=== PATIENT | female | born 1985 | race Caucasian/White ===

== ENCOUNTER → 2016-07-09 | Outpatient (CLI) | payer OTHER ==
[2016-07-09 12:48] LABS: CH 30.1; CHCM 34.7; HCT 36.4 % (34.0-46.0); HDW 2.66; HGB 12.4 gm/dL (11.4-16.0); MCH 29.7 pg (25.0-35.0); MCHC 34.1 g/dL (31.0-37.0); MCV 87.1 fL (80.0-100.0); Mean Platelet Volume 7.3; RBC 4.19 m/uL (3.80-5.40); RDW 13.1 % (11.5-15.5); WBC 10.9 k/uL (3.8-10.6)
== END | disposition home or self-care (01) ==
LOC: LABWHC1 11:28
PROVIDERS: ATTEND Obstetrics & Gynecology
DX: Z34.82 Encounter for supervision of other normal pregnancy, second trimester (principal); Z3A.00 Weeks of gestation of pregnancy not specified
CPT/HCPCS: 36415; 82950; 85027

== ENCOUNTER 2016-10-18 06:30 | Inpatient (IN) | payer OTHER ==
[2016-10-18] MEDS ORDERED: TERBUTALINE 1 MG/ML VIAL SQ PRN (07:07)
[2016-10-18] MEDS ORDERED: OXYTOCIN 10 UNIT/ML 1 ML VIAL IM PRN (07:07)
[2016-10-18] MEDS ORDERED: CARBOPROST TROMETHAMINE 250 MCG/ML 1 ML AMP IM PRN (07:07)
[2016-10-18] MEDS ORDERED: LIDOCAINE 1% (PF) 10 MG/ML (30 ML SDV) SQ PRN (07:07)
[2016-10-18] MEDS ORDERED: METHYLERGONOVINE 0.2 MG/ML 1 ML AMP IM PRN (07:07)
[2016-10-18] MEDS ORDERED: OXYTOCIN 20 UNITS/1000 ML NS 1,000 ML IV SCH ×2 (07:15→21:30)
[2016-10-18 07:36] VITALS: BMI 34.3
[2016-10-18 07:47] LABS: Basophils % (A) 0 %; CH 30.5; CHCM 36.5; Eosinophils # (A) 0.1 k/uL (0-0.7); Eosinophils % (A) 1 %; HCT 35.2 % (34.0-46.0); HDW 2.95; HGB 12.5 gm/dL (11.4-16.0); Luc # (Auto) 0.45; Luc % (Auto) 4; Lymphocytes # (A) 2.5 k/uL (1.0-4.8); Lymphocytes % (A) 22 %; MCH 29.9 pg (25.0-35.0); MCHC 35.5 g/dL (31.0-37.0); Mean Platelet Volume 7.6; Monocytes # (A) 0.6 k/uL (0-1.0); Monocytes % (A) 5 %; Neutrophils # (A) 7.8 k/uL (1.3-7.7); Neutrophils % (A) 68 %; RBC 4.19 m/uL (3.80-5.40); RDW 13.4 % (11.5-15.5); WBC 11.4 k/uL (3.8-10.6); WBC (Perox) 12.04
[2016-10-18] MEDS ORDERED: fentaNYL (PF) 50 MCG/ML 5 ML AMP ONE (11:40)
[2016-10-18] MEDS ORDERED: BUPIVACAINE (PF) 0.25% 30 ML VIAL ONE (11:40)
[2016-10-18] MEDS ORDERED: SODIUM CHLORIDE 0.9% 100 ML BAG ONE (11:40)
[2016-10-18] MEDS ORDERED: BUPIVACAINE (PF) 0.25% 25 ML, fentaNYL (PF) 200 MCG in SODIUM CHLORIDE 0.9% 71 ML EPIDURAL ONE (13:06)
[2016-10-18] MEDS: LACTATED RINGERS 1,000 ML IV SCH ×2 (13:10→22:31)
[2016-10-18 13:18] LABS: ALT 40 U/L (9-52); AST 20 U/L (14-36); Blood Urea Nitrogen 9 mg/dL (7-17); LDH 403 U/L (313-618); Non-African American GFR(MDRD) >60 (>60 ml/min/1.73 sqM); Uric Acid 3.3 mg/dL (3.7-7.4)
[2016-10-18] MEDS ORDERED: CITRIC ACID-SODIUM CITRATE 15 ML CUP PO ONE (19:51)
[2016-10-18] MEDS ORDERED: MORPHINE SULFATE (PF) 0.3 MG/0.3 ML SYR ONE (19:53)
[2016-10-18] MEDS ORDERED: OXYTOCIN 10 UNIT/ML 1 ML VIAL ONE (19:53)
[2016-10-18] MEDS ORDERED: PHENYLEPHRINE-0.9% NACL SYG 1 MG/10 ML SYRINGE ONE (19:53)
[2016-10-18] MEDS ORDERED: KETOROLAC 30 MG/ML 1 ML VIAL ONE (19:53)
[2016-10-18] MEDS ORDERED: ONDANSETRON 4 MG/2 ML VIAL ONE (19:53)
[2016-10-18] MEDS ORDERED: NALBUPHINE 10 MG/ML AMPUL ONE (19:53)
--- NOTE | 2016-10-18 20:43 | P.HPOB ---
History of Present Illness H&P Date: 10/18/16 Chief Complaint: IUP term: induction of labor Patient is a 31-year-old at 39 weeks gestation arise for induction of labor. She is been followed closely throughout her and other than persistent marijuana use has had no other significant complications. Her course generally was unremarkable with an EDC of 620 of 2017 confirmed by ultrasound. Pertinent labs did include O+ blood type rubella immune hepatitis B surface antigen and group B strep and RPR were all negative. It should be noted that she is a smoker and she does smoke marijuana. Artificial rupture membranes was performed this morning with her dilated to 1/2 cm 80% effaced -2 station. Clear fluid is noted. An initial presentation blood pressure was normal as close to remainder of her physical exam. Heart regular, lungs clear, extremities without pain. Abdomen is soft and gravid uterus is noted. She was ivelisse Y evaluated every 3-6 minutes and heart tones were in the 140s and reactive. Assessment intrauterine at term: Plan induction of labor, epidural for pain management, expect spontaneous vaginal delivery with Pitocin augmentation of labor. Past Medical History Past Medical History: No Reported History History of Any Multi-Drug Resistant Organisms: MRSA Date of last positivie culture/infection: 2003 MDRO Source:: right arm Additional Past Surgical History / Comment(s): Oral surgery wisdom teeth, 1996 Past Anesthesia/Blood Transfusion Reactions: No Reported Reaction Smoking Status: Current every day smoker Past Alcohol Use History: None Reported Past Drug Use History: Marijuana Additional Drug Use History / Comment(s): smokes 2 joints/ day currently - Past Family History Mother Family Medical History: Hypertension Medications and Allergies Home Medications Medication Instructions Recorded Confirmed Type No Known Home Medications [No 10/18/16 10/18/16 History Known Home Medications] Allergies Allergy/AdvReac Type Severity Reaction Status Date / Time No Known Allergies Allergy Verified 10/18/16 07:06 Exam Osteopathic Statement: *. No significant issues noted on an osteopathic structural exam other than those noted in the History and Physical/Consult. - Vital Signs Vital signs: Vital Signs Temp Pulse Resp BP 10/18/16 07:13 96.9 F L 97 18 154/76 Intake and Output 10/18/16 10/18/16 10/18/16 06:59 14:59 22:59 Other: Weight 96.615 kg Patient Weight 10/19/16 06:59 Weight 96.615 kg Results Result Diagrams: 10/18/16 07:20 10/18/16 12:56 Abnormal Lab Results - Last 24 Hours (Table) 10/18/16 10/18/16 Range/Units 07:20 12:56 WBC 11.4 H (3.8-10.6) k/uL Neutrophils # 7.8 H (1.3-7.7) k/uL Creatinine 0.50 L (0.52-1.04) mg/dL Uric Acid 3.3 L (3.7-7.4) mg/dL
--- NOTE | 2016-10-18 20:49 | P.OP ---
Date of Procedure: 10/18/16 Preoperative Diagnosis: Intrauterine at term: Failure to progress: Elevated blood pressures during labor likely due to pain Postoperative Diagnosis: Same Procedure(s) Performed: Primary low transverse section from Pfannenstiel Implants: Anesthesia: spinal Surgeon: Sunny Weeks Manager Sql #1: Delisa Ragsdale Estimated Blood Loss (ml): 500 IV fluids (ml): 700 Urine output (ml): 100 Pathology: other (Placenta) Condition: stable Disposition: floor Indications for Procedure: Operative Findings: Throughout the day patient had intermittent elevations in her blood pressure. Each time she had an elevation of blood pressure once pain was managed her blood pressure medially came down. At approximately between 1 and 1:30 the nurses did discuss her blood pressure elevation with me but that was the first time I was notified of an elevated blood pressure. She did have several significant elevations 180/90 and 170/90. We did order preeclamptic labs at this point however, once epidural was placed her blood pressure immediately returned to normal value and she voiced no complaints. Deep tendon reflexes were 2+ no swelling and no other signs or symptoms of preeclampsia. I was again notified at approximately 7 to 7:30 again that there is been some further elevations in her blood pressure but it was also noted that each time her pain was managed her blood pressure immediately went down. It is something we will have to follow closely over the next day or 2. She received no medication for her blood pressure elevations due to my not be notified of her blood pressures when they were elevated. Following delivery scores were 8 and 9 at one and 5 minutes respectively and the weight of this male was 8 lbs. 3 oz. Description of Procedure: Patient was taken to the operating suite where a spinal anesthetic was found be adequate. She was prepped and draped in normal sterile fashion placed in the dorsal supine position with leftward tilt. Initially a Pfannenstiel skin incision was made and this incision was then carried through to the underlying layer of the fascia was second knife. She was then nicked midline and this opening was extended laterally with Stanton scissors. Superior and inferior aspect of this incision were then grasped tented up and bluntly and sharply dissected off the rectus muscles. Rectus muscles were then divided midline and blunt dissection through the peritoneum was made. This opening was then extended superiorly and inferiorly with good visualization of both bowel bladder. Bladder blade was then placed the vesicouterine peritoneum identified and grasped with pickups. This tissue was then entered sharply with Metzenbaum scissors and her bladder flap was digitally created. Knife was then used to incise uterus and this opening was then extended bluntly following full opening of the incision with hemostat. Head was then brought up into the incision and atraumatically delivered. A was delivered from right occiput transverse position and significant It is noted. Once baby was delivered the head in the mouth nares were bulb suctioned anterior posterior shoulders were easily delivered with gentle downward upper traction. Umbilical cord was then clamped and cut in usual fashion an a was handed over to nursery personnel in stable condition. Uterus was then exteriorized following removal of the placenta it was cleared of clots and debris and closed in 2 layers with 0 Vicryl suture. Once excellent hemostasis was obtained 3-0 Vicryl was used to reapproximate the bladder flap and blood and debris was suctioned from the posterior cul-de-sac. Uterus was then reinserted into the abdomen and the peritoneal layer was closed 0 Vicryl suture. Fascial layer was then closed with 0 Vicryl suture one layer of 3-0 Vicryl was placed in deep subcuticular tissues to reapproximate the skin and close the space and the skin was then closed with 3-0 Vicryl on a Davi needle. Patient tolerated surgery very well sponge, lap, needle counts were all correct 2 and patient was taken to the recovery room in stable and satisfactory condition.
[2016-10-18] MEDS ORDERED: METOCLOPRAMIDE 5 MG/ML 2 ML VIAL IVP PRN (21:21)
[2016-10-18] MEDS ORDERED: Acetaminophen-Codeine 300-30mg TAB PO PRN ×2 (21:21)
[2016-10-18] MEDS ORDERED: IBUPROFEN 600 MG TAB PO PRN (21:21)
[2016-10-18] MEDS ORDERED: ZOLPIDEM 5 MG TAB PO PRN (21:21)
[2016-10-18] MEDS ORDERED: ONDANSETRON 4 MG/2 ML VIAL IVP PRN (21:21)
[2016-10-18] MEDS ORDERED: diphenhydrAMINE 25 MG CAP PO PRN (21:21)
[2016-10-18] MEDS ORDERED: SIMETHICONE 80 MG CHEWABLE PO PRN (21:21)
[2016-10-18] MEDS ORDERED: ACETAMINOPHEN TAB 325 MG TAB PO PRN (21:21)
[2016-10-18] MEDS ORDERED: diphenhydrAMINE 50 MG CAP PO PRN (21:21)
[2016-10-18] MEDS ORDERED: diphenhydrAMINE 50 MG/ML 1 ML VIAL IVP PRN ×2 (21:21)
[2016-10-18] MEDS ORDERED: LANOLIN CREAM 5 GM TUBE TOPICAL PRN (21:21)
[2016-10-18] MEDS ORDERED: NALOXONE 0.4 MG/ML 1 ML VIAL IV PRN (21:21)
[2016-10-19] MEDS: KETOROLAC 30 MG/ML 1 ML VIAL IVP PRN ×3 (05:35→20:27)
[2016-10-19] MEDS: LACTATED RINGERS 1,000 ML IV SCH ×2 (05:36→23:31)
[2016-10-19 06:41] LABS: Basophils % (A) 0 %; CH 30.5; CHCM 35.5; Eosinophils # (A) 0.1 k/uL (0-0.7); Eosinophils % (A) 1 %; HCT 32.6 % (34.0-46.0); HDW 2.89; HGB 11.2 gm/dL (11.4-16.0); Luc # (Auto) 0.36; Luc % (Auto) 2; Lymphocytes # (A) 2.2 k/uL (1.0-4.8); Lymphocytes % (A) 12 %; MCH 29.6 pg (25.0-35.0); MCHC 34.3 g/dL (31.0-37.0); MCV 86.3 fL (80.0-100.0); Mean Platelet Volume 7.4; Monocytes # (A) 0.8 k/uL (0-1.0); Monocytes % (A) 4 %; Neutrophils % (A) 80 %; RBC 3.78 m/uL (3.80-5.40); RDW 13.4 % (11.5-15.5); WBC 17.4 k/uL (3.8-10.6); WBC (Perox) 17.86
[2016-10-19] MEDS: SENNOSIDES-DOCUSATE SODIUM 1 EACH TAB PO SCH ×2 (07:59→20:27)
--- NOTE | 2016-10-19 08:02 | P.PNOBGPC ---
Subjective - Subjective Principal diagnosis: Postoperative 1 Interval history: Patient is doing very well postop day 1. Review of her blood pressures through the night reveals them to be all within normal limits. She is very comfortable now following the surgery her pain levels well controlled and she voices no complaints. She is tolerating a clear liquid diet and she is able to ambulate. Patient reports: Reports appetite normal, Reports voiding normally, Reports pain well controlled, Reports ambulating normally [place]: doing well Objective - Vital Signs Latest vital signs: Vital Signs Temp Pulse Resp BP Pulse Ox 10/19/16 03:00 98.5 F 83 16 112/66 98 10/18/16 22:44 97.6 F 81 16 119/66 95 10/18/16 22:14 97.5 F L 68 16 111/54 96 10/18/16 21:44 85 16 119/58 98 10/18/16 21:29 97.2 F L 79 16 118/64 97 10/18/16 21:14 81 14 123/71 95 10/18/16 20:59 97.6 F 93 14 112/56 94 L 10/18/16 20:44 97.5 F L 99 16 92/43 97 Intake and Output 10/18/16 10/19/16 10/19/16 22:59 06:59 14:59 Intake Total 1700.00 Output Total 600 750 Balance 1100.00 -750 Intake: IV 700 Intake, IV Titration 1000.00 Amount Oxytocin 20 Units/1000 ml 1000.00 Ns 1,000 ml @ 1 MILLIUNIT/MIN 3 mls/hr IV .Q24H [facility] Rx#:[id number] Output: Urine 100 750 Uretheral (Castellanos) 350 Estimated Blood Loss 500 Other: Voiding Method Indwelling Catheter - Exam Lungs: bilateral: normal Chest: Normal S1, Normal S2 Extremities: Present: normal Abdomen: Present: normal appearance, soft. Absent: distention, tenderness Incision: Present: normal, dry, intact Uterus: Present: normal, firm - Labs Labs: Abnormal Lab Results - Last 24 Hours (Table) 10/18/16 10/18/16 10/19/16 Range/Units 07:20 12:56 06:30 WBC 11.4 H 17.4 H (3.8-10.6) k/uL RBC 3.78 L (3.80-5.40) m/uL Hgb 11.2 L (11.4-16.0) gm/dL Hct 32.6 L (34.0-46.0) % Neutrophils # 7.8 H 14.0 H (1.3-7.7) k/uL Creatinine 0.50 L (0.52-1.04) mg/dL Uric Acid 3.3 L (3.7-7.4) mg/dL
--- NOTE | 2016-10-19 08:06 | P.PN ---
Progress Note - Text Following delivery I reviewed all the blood pressures throughout the day and there were multiple blood pressures that I was not notified of that were significantly above the normal value. It is unclear why I was not notified of most of these blood pressure elevations. By and large once her pain seemed to be better they did return to normal value and throughout the day she had multiple normal values including 120s over 70s and 60s. However there were blood pressures were as high as 200/100 that were not addressed. I did speak with the nurse in the early afternoon and at that time she notified me of 3 elevated blood pressures I did question why she didn't notify me earlier but she said that the blood pressures had come down and that at that time she felt it was more due to pain and stress then anything else. Once she had her epidural sure relates that patient's blood pressures DOWN to normal values at that point. Once I was notified of the blood pressures I did order preeclamptic labs which all returned normal. I was not again notified any elevated blood pressures until shortly before we moved forward with her section, while it seems likely that these blood pressures were related to pain and stress more than anything else without having notification of how elevated blood pressures were really had no opportunity to address them and certainly would have started her on labetalol for blood pressures that were greater than 160 and/or greater than 110 diastolic. That said the patient denied all signs and symptoms of preeclampsia and it appears that the blood pressure issue was stress related, pain related, but I cannot fully rule out gestational hypertension as part of the diagnosis. Again it is almost certain that during the process of her labor had I been aware for blood pressure elevations I would have given her labetalol and we would have been more aggressive with her blood pressure elevations had a high been notified of same.
--- NOTE | 2016-10-19 10:58 | P.PN ---
Progress Note - Text 0645 Anesthesia POD 1. Patient is status post section under spinal anesthesia with intra-thecal preservative free morphine [300 g]. Minimal pruritus, good post-op analgesia, and no headache or other complications.
[2016-10-20] MEDS: SENNOSIDES-DOCUSATE SODIUM 1 EACH TAB PO SCH (08:33)
--- NOTE | 2016-10-20 09:17 | P.DS ---
Providers Date of admission: 10/18/16 06:45 Expected date of discharge: 10/20/16 Attending physician: Sunny Weeks Primary care physician: Stated None Hospital Course: Patient is doing very well post op day 2. She is ambulating, voiding, and she is tolerating her diet. She voices no complaints and requests discharged home today. Her vital signs are stable she is afebrile. Heart regular, lungs clear , extremities without pain. Abdomen is soft uterus is firm incision is clean dry and intact. Assessment postop day 2. Plan discharged home follow up with me in 1 week. Prescription for Tylenol 3 and Motrin has been provided as has a prescription for breast pump. All other questions are answered for her prior to her discharge and she is stable for discharge at this time. Patient Condition at Discharge: Good Plan - Discharge Summary New Discharge Prescriptions: New Acetaminophen-Codeine 300-30mg [Tylenol #3] 1 tab PO Q4H PRN #30 tablet PRN Reason: Pain Ibuprofen [Motrin] 600 mg PO Q6HR PRN #30 tab PRN Reason: Pain Discharge Medication List Acetaminophen-Codeine 300-30mg [Tylenol #3] 1 tab PO Q4H PRN #30 tablet [Rx] Ibuprofen [Motrin] 600 mg PO Q6HR PRN #30 tab 10/20/16 [Rx] Follow up Appointment(s)/Referral(s): Sunny Weeks DO [Doctor of Osteopathic Medicine] - 1 Week Activity/Diet/Wound Care/Special Instructions: No heavy lifting, limit stairs and driving, and pelvic rest. If any high temperatures, heavy bleeding, or severe pain call my office Discharge Disposition: HOME SELF-CARE
[2016-10-20 09:27] VITALS: BP 135/77; PULSE 82; RESP 20; TEMP 97.4
== END 2016-10-20 12:20 | disposition home or self-care (01) | DRG 765 ==
LOC: 4FBP 06:45
PROVIDERS: ADMIT Obstetrics & Gynecology; ATTEND Obstetrics & Gynecology
PROC: 10907ZC Drainage of Amniotic Fluid, Therapeutic from Products of Conception, Via Natural or Artificial Opening (ICD-10-PCS; 2016-10-18)
PROC: 3E033VJ Introduction of Other Hormone into Peripheral Vein, Percutaneous Approach (ICD-10-PCS; 2016-10-18)
PROC: 3E0S3NZ Introduction of Analgesics, Hypnotics, Sedatives into Epidural Space, Percutaneous Approach (ICD-10-PCS; 2016-10-18)
PROC: 10D00Z1 Extraction of Products of Conception, Low, Open Approach (ICD-10-PCS; principal; 2016-10-18 19:43)
DX: O62.0 Primary inadequate contractions (principal); O99.324 Drug use complicating childbirth; F12.90 Cannabis use, unspecified, uncomplicated; O13.4 Gestational [pregnancy-induced] hypertension without significant proteinuria, complicating childbirth; F17.200 Nicotine dependence, unspecified, uncomplicated; O99.334 Smoking (tobacco) complicating childbirth; Z86.14 Personal history of Methicillin resistant Staphylococcus aureus infection; Z86.19 Personal history of other infectious and parasitic diseases; Z82.49 Family history of ischemic heart disease and other diseases of the circulatory system; Z3A.39 39 weeks gestation of pregnancy; Z37.0 Single live birth
CPT/HCPCS: 82565; 83615; 84450; 84460; 84520; 84550; 85025; 88307

== ENCOUNTER 2017-04-18 16:58 | Emergency (ER) | payer OTHER ==
[2017-04-18 17:15] VITALS: BP 139/70; PULSE 87; RESP 18; TEMP 99
[2017-04-18 17:55] LABS: Appearance,Urine Clear (Clear); Bilirubin,Urine Negative (Negative); Glucose,Urine (UA) Negative (Negative); Ketones,Urine Negative (Negative); Leukocyte Esterase,Urine Negative (Negative); Nitrite,Urine Negative (Negative); Protein,Urine Trace (Negative); Specific Gravity,Urine 1.017 (1.001-1.035); UA Billing (MACRO vs. MICRO) CHEM; Urobilinogen,Urine <2.0 mg/dL (<2.0)
[2017-04-18 18:00] LABS: Basophils # (A) 0.1 k/uL (0-0.2); Basophils % (A) 1 %; CH 29.1; Eosinophils # (A) 0.1 k/uL (0-0.7); Eosinophils % (A) 1 %; HCT 45.4 % (34.0-46.0); HDW 2.32; Luc # (Auto) 0.13; Luc % (Auto) 1; Lymphocytes # (A) 2.2 k/uL (1.0-4.8); Lymphocytes % (A) 16 %; MCH 28.5 pg (25.0-35.0); MCHC 33.1 g/dL (31.0-37.0); MCV 86.1 fL (80.0-100.0); Mean Platelet Volume 7.2; Monocytes # (A) 0.5 k/uL (0-1.0); Monocytes % (A) 4 %; Neutrophils # (A) 10.8 k/uL (1.3-7.7); Neutrophils % (A) 78 %; RBC 5.27 m/uL (3.80-5.40); RDW 14.1 % (11.5-15.5); WBC 13.8 k/uL (3.8-10.6); WBC (Perox) 14.04
--- NOTE | 2017-04-18 18:00 | ED ---
General Adult HPI - General Chief complaint: Abdominal Pain Stated complaint: Wants test Time Seen by Provider: 04/18/17 17:16 Source: patient, RN notes reviewed Mode of arrival: ambulatory Limitations: no limitations - History of Present Illness Initial comments: This is a 32-year-old female who presents to the emergency department with request for evaluation of possible . Patient states that for the past week she has been having pain at her previous scar. She describes the pain as tugging and pulling lasting for about 30 seconds at a time. She states that on Tuesday she had a positive test. Today she experienced abdominal pain about 4 times. She states that she had a in September, after being in labor for 11 hours with her son. She states there were no complications. She is unsure of her last menstrual period, stating that it was either November or December. Patient denies any bleeding or discharge. This concerned because she has been donating plasma. She admits that she has been having some morning sickness. Denies fever, chills, chest pain , shortness of breath, constipation or diarrhea, dysuria or hematuria, numbness or tingling, headache or vision changes. - Related Data Home Medications Medication Instructions Recorded Confirmed No Known Home Medications [No 04/18/17 04/18/17 Known Home Medications] Allergies Allergy/AdvReac Type Severity Reaction Status Date / Time No Known Allergies Allergy Verified 04/18/17 18:29 Review of Systems ROS Statement: Those systems with pertinent positive or pertinent negative responses have been documented in the HPI. ROS Other: All systems not noted in ROS Statement are negative. Past Medical History Past Medical History: No Reported History History of Any Multi-Drug Resistant Organisms: MRSA Date of last positivie culture/infection: 2003 MDRO Source:: right arm Past Surgical History: Section Additional Past Surgical History / Comment(s): Oral surgery wisdom teeth, 1996 Past Anesthesia/Blood Transfusion Reactions: No Reported Reaction Past Psychological History: No Psychological Hx Reported Smoking Status: Current every day smoker Past Alcohol Use History: None Reported Past Drug Use History: Marijuana - Past Family History Mother Family Medical History: Hypertension General Exam - General Exam Comments Initial Comments: General: Awake and alert, well-developed; in no apparent distress. HEENT: Head atraumatic, normocephalic. Pupils are equal, round and reactive to light. Extraocular movements intact. Oropharynx moist without erythema or exudate. Neck: Supple. Normal ROM. Cardiovascular: Regular rate and rhythm. No murmurs, rubs or gallops. Chest symmetrical. Respiratory: Lungs clear to auscultation bilaterally. No wheezes, rales or rhonchi. Normal respiratory effort with no use of accessory muscles. Abdomen: Soft, non-distended. Generalized tenderness over her lower abdomen. C -section scar is well-healed. No rigidity, rebound or guarding. Normal bowel sounds in all 4 quadrants. Musculoskeletal: Normal ROM, no tenderness bilateral upper and lower extremities. Ambulating normally. Skin: [place], warm and dry without rashes or lesions. Neurological: Alert and oriented x3. CN II-XII grossly intact. Speech is fluent and answers are appropriate. No focal neuro deficits. Psychiatric: Normal mood and affect. No overt signs of depression or anxiety noted. Limitations: no limitations Course Vital Signs 04/18/17 17:12 Temperature 99.0 F Pulse Rate 87 Respiratory 18 Rate Blood Pressure 139/70 O2 Sat by Pulse 100 Oximetry Medical Decision Making - Medical Decision Making This is a 32-year-old female who presented to the emergency department for evaluation of abdominal pain and possible . Urine hCG was positive. Serum quant is pending ultrasound revealed a 9 week IUP and a subchorionic bleed. When I returned to the room to discuss findings with patient she had eloped. Was unable to discuss anything further with patient. - Lab Data Result diagrams: 04/18/17 17:39 04/18/17 17:39 Lab Results 04/18/17 04/18/17 04/18/17 Range/Units 17:39 17:39 17:39 WBC 13.8 H (3.8-10.6) k/uL RBC 5.27 (3.80-5.40) m/uL Hgb 15.0 (11.4-16.0) gm/dL Hct 45.4 (34.0-46.0) % MCV 86.1 (80.0-100.0) fL MCH 28.5 (25.0-35.0) pg MCHC 33.1 (31.0-37.0) g/dL RDW 14.1 (11.5-15.5) % Plt Count 292 (150-450) k/uL Neutrophils % 78 % Lymphocytes % 16 % Monocytes % 4 % Eosinophils % 1 % Basophils % 1 % Neutrophils # 10.8 H (1.3-7.7) k/uL Lymphocytes # 2.2 (1.0-4.8) k/uL Monocytes # 0.5 (0-1.0) k/uL Eosinophils # 0.1 (0-0.7) k/uL Basophils # 0.1 (0-0.2) k/uL Sodium 135 L (137-145) mmol/L Potassium 3.7 (3.5-5.1) mmol/L Chloride 104 (98-107) mmol/L Carbon Dioxide 21 L (22-30) mmol/L Anion Gap 10 mmol/L BUN 8 (7-17) mg/dL Creatinine 0.48 L (0.52-1.04) mg/dL Est GFR (MDRD) Af Amer >60 (>60 ml/min/1.73 sqM) Est GFR (MDRD) Non-Af >60 (>60 ml/min/1.73 sqM) Glucose 72 L (74-99) mg/dL Calcium 10.0 (8.4-10.2) mg/dL Total Bilirubin 0.5 (0.2-1.3) mg/dL AST 19 (14-36) U/L ALT 40 (9-52) U/L Alkaline Phosphatase 70 (38-126) U/L Total Protein 7.5 (6.3-8.2) g/dL Albumin 4.5 (3.5-5.0) g/dL Amylase 72 (30-110) U/L Lipase 60 (23-300) U/L Urine Color Urine Appearance (Clear) Urine pH (5.0-8.0) Ur Specific [place] (1.001-1.035) Urine Protein (Negative) Urine Glucose (UA) (Negative) Urine Ketones (Negative) Urine Blood (Negative) Urine Nitrite (Negative) Urine Bilirubin (Negative) Urine Urobilinogen (<2.0) mg/dL Ur Leukocyte Esterase (Negative) Urine HCG, Qual Detected (Not Detectd) 04/18/17 Range/Units 17:39 WBC (3.8-10.6) k/uL RBC (3.80-5.40) m/uL Hgb (11.4-16.0) gm/dL Hct (34.0-46.0) % MCV (80.0-100.0) fL MCH (25.0-35.0) pg MCHC (31.0-37.0) g/dL RDW (11.5-15.5) % Plt Count (150-450) k/uL Neutrophils % % Lymphocytes % % Monocytes % % Eosinophils % % Basophils % % Neutrophils # (1.3-7.7) k/uL Lymphocytes # (1.0-4.8) k/uL Monocytes # (0-1.0) k/uL Eosinophils # (0-0.7) k/uL Basophils # (0-0.2) k/uL Sodium (137-145) mmol/L Potassium (3.5-5.1) mmol/L Chloride (98-107) mmol/L Carbon Dioxide (22-30) mmol/L Anion Gap mmol/L BUN (7-17) mg/dL Creatinine (0.52-1.04) mg/dL Est GFR (MDRD) Af Amer (>60 ml/min/1.73 sqM) Est GFR (MDRD) Non-Af (>60 ml/min/1.73 sqM) Glucose (74-99) mg/dL Calcium (8.4-10.2) mg/dL Total Bilirubin (0.2-1.3) mg/dL AST (14-36) U/L ALT (9-52) U/L Alkaline Phosphatase (38-126) U/L Total Protein (6.3-8.2) g/dL Albumin (3.5-5.0) g/dL Amylase (30-110) U/L Lipase (23-300) U/L Urine Color Yellow Urine Appearance Clear (Clear) Urine pH 6.0 (5.0-8.0) Ur Specific [place] 1.017 (1.001-1.035) Urine Protein Trace H (Negative) Urine Glucose (UA) Negative (Negative) Urine Ketones Negative (Negative) Urine Blood Negative (Negative) Urine Nitrite Negative (Negative) Urine Bilirubin Negative (Negative) Urine Urobilinogen <2.0 (<2.0) mg/dL Ur Leukocyte Esterase Negative (Negative) Urine HCG, Qual (Not Detectd) - Radiology Data Radiology results: report reviewed Transabdominal obstetric ultrasound impression: 1. A single viable IUP 9 weeks/ 0 days with JEN of 11/21/17. 2. Subchorionic bleed superior to gestational sac. 3. Corpus luteum left ovary. Disposition Clinical Impression: Subchorionic bleed Disposition: Left W/O Being Seen by Phys Referrals: José Cole MD [Primary Care Provider] - 1-2 days Time of Disposition: 19:18
[2017-04-18 18:30] LABS: ALT 40 U/L (9-52); AST 19 U/L (14-36); Alkaline Phosphatase 70 U/L (38-126); Amylase 72 U/L (30-110); Anion Gap 10 mmol/L; Blood Urea Nitrogen 8 mg/dL (7-17); Carbon Dioxide 21 mmol/L (22-30); Chloride 104 mmol/L (98-107); Glucose 72 mg/dL (74-99); Non-African American GFR(MDRD) >60 (>60 ml/min/1.73 sqM); Potassium 3.7 mmol/L (3.5-5.1); Sodium 135 mmol/L (137-145); Total Bilirubin 0.5 mg/dL (0.2-1.3); Total Protein 7.5 g/dL (6.3-8.2)
--- NOTE | 2017-04-18 18:38 | US ---
EXAMINATION TYPE: US OB <= 14 wk fetus DATE OF EXAM: 04/18/2017 COMPARISON: NONE CLINICAL HISTORY: pos preg + abdominal pain. Pelvic pain, history of EXAM PERFORMED: Transabdominal (TA) EXAM MEASUREMENTS: GESTATIONAL AGE / DATING Physician Established: Not yet established Dates by LMP: LMP unknown Dates by First Scan: No previous this is first scan Dates by Current Scan for: (9 weeks/0 days) EDC: 11/21/17 MATERNAL ANATOMY Uterus: 11.0 x 6.7 x 8.1cm Right Ovary: 3.7 x 1.8 x 2.6cm Left Ovary: 4.6 x 2.6 x 2.4cm Post CDS / Adnexa: wnl Presence of free fluid: no Presence of corpus luteal cyst: hypoechoic area left ovary = 2.0 x 1.8 x 1.9cm Presence of subchorionic bleed: yes, superior to gestational sac =2.5cm GESTATION / SURVEY CRL: 2.3cm (9 weeks/0 days) Yolk Sac (normal less than 6mm): 0.5cm Heart Rate: 170 bpm Rhythm: Normal IUP: Viable IUP Date of LMP: November or December Beta HcG (if available): Not available at this time IMPRESSION: 1. SINGLE VIABLE IUP 9WKS/0DAYS WITH JEN OF 11/21/17. 2. SUBCHORIONIC BLEED SUPERIOR TO GESTATIONAL SAC. 3. CORPUS LUTEUM LEFT OVARY.
== END 2017-04-18 19:23 | disposition left against medical advice (07) ==
LOC: EC 16:58
DX: O20.8 Other hemorrhage in early pregnancy (principal); O99.89 Other specified diseases and conditions complicating pregnancy, childbirth and the puerperium; R10.9 Unspecified abdominal pain; O99.331 Smoking (tobacco) complicating pregnancy, first trimester; F17.200 Nicotine dependence, unspecified, uncomplicated; Z3A.09 9 weeks gestation of pregnancy; Z86.14 Personal history of Methicillin resistant Staphylococcus aureus infection
CPT/HCPCS: 36415; 76801; 80053; 81003; 81025; 82150; 83690; 84702; 85025; 99284

== ENCOUNTER → 2017-09-02 | Outpatient (CLI) | payer OTHER ==
[2017-09-02 13:13] LABS: Appearance,Urine Clear (Clear); Bilirubin,Urine Negative (Negative); Blood,Urine Negative (Negative); Color,Urine Light Yellow; Glucose,Urine (UA) Negative (Negative); Ketones,Urine Trace (Negative); Leukocyte Esterase,Urine Negative (Negative); Nitrite,Urine Negative (Negative); PH, Urine 6.5 (5.0-8.0); Protein,Urine Negative (Negative); Specific Gravity,Urine 1.004 (1.001-1.035); Urobilinogen,Urine <2.0 mg/dL (<2.0)
[2017-09-02 13:14] LABS: HCT 31.9 % (34.0-46.0); HGB 11.2 gm/dL (11.4-16.0); MCH 29.1 pg (25.0-35.0); MCHC 35.1 g/dL (31.0-37.0); MCV 82.9 fL (80.0-100.0); Mean Platelet Volume 6.8; Platelet Count 320 k/uL (150-450); RBC 3.85 m/uL (3.80-5.40); RDW 12.9 % (11.5-15.5); WBC 7.9 k/uL (3.8-10.6)
[2017-09-03 15:48] LABS: C. trachomatis,PCR Negative (Neg,Equiv); Chlamydia trachomatis Source Urine; N. gonorrhoeae,PCR Negative (Neg,Equiv); Neisseria Source Urine
== END | disposition home or self-care (01) ==
LOC: LABWHC1 11:40
PROVIDERS: ATTEND Obstetrics & Gynecology
DX: Z34.80 Encounter for supervision of other normal pregnancy, unspecified trimester (principal)
CPT/HCPCS: 36415; 81003; 82565; 82950; 85027; 86762; 86780; 86850; 86900; 86901; 87086; 87340; 87491; 87591

== ENCOUNTER 2017-10-13 12:37 | Outpatient (CLI) | payer SELFPAY ==
[2017-10-13 13:55] LABS: Amphetamine Screen,Urine Not Detected (NotDetected); Barbiturate Screen,Urine Not Detected (NotDetected); Benzodiazepines Screen,Urine Not Detected (NotDetected); Cocaine Screen,Urine Not Detected (NotDetected); Methadone Screen, Urine Not Detected (NotDetected); Opiate Screen,Urine Detected (NotDetected); Oxycodone Screen, Urine Not Detected (NotDetected); Phencyclidine Screen,Urine Not Detected (NotDetected); Tricyclic Antidepressant,Urine Not Detected (NotDetected); Urn Cannabinoid Scrn Detected (NotDetected)
--- NOTE | 2017-10-13 14:30 | US ---
EXAMINATION TYPE: US OB BPP wo non-stress DATE OF EXAM: 10/13/2017 COMPARISON: Early OB in PACS CLINICAL HISTORY: Non reactive NST. Non reactive NST EXAM PERFORMED: Transabdominal (TA) BPP PARAMETERS: PRESENTATION: Vertex HEART RATE: 126 bpm RHYTHM: Normal DESHAWN: 10.2 DIAPHRAGM IMAGED: Yes BPP SCORIN. Breathin (1 episode of breathing of 30 second duration in 30 minutes of scanning time) 2. Movement: 0 (at least 3 discrete body movements in 30 minutes) 3. Tone: 2 (1 episode of active flexion/extension of limb) 4. DESHAWN: 2 (DESHAWN index > 5cm) TOTAL SCORE: 4 / 8 Normal cephalad presentation to fetus is seen. heart tones are diminished from the normal range . Scoring as noted above. IMPRESSION: Abnormal study.
[2017-10-13 14:46] VITALS: BP 131/70; PULSE 91; RESP 16; TEMP 96.8
--- NOTE | 2017-10-17 08:52 | P.MSEPDOC ---
Presenting Problems - Arrival Data Date of Arrival on Unit: 10/13/17 Time of Arrival on Unit: 12:38 Mode of Transport: Ambulatory - Complaint OB-Reason for Admission/Chief Complaint: NST Comment: Pt arrived for NST; had US 6/5 with fetus having decreased movement. Pt has been unable to be contacted by [facility] until sending a certified letter. Medical History - Information : 3 Para: 1 Term: 1 : 0 Abortions: Spontaneous or Elective: 1 Number of Living Children: 1 - Gestational Age Gestational Age by JEN (wks/days): 34 Weeks and 4 Days - History Complications: Smoker, Hx. Substance Abuse Comment: Heroin 2 days ago; daily marijuana use. Pt states clean from heroin for 3 yr until 2 yrs ago. Pt states used only 1 time. Review of Systems - Review of Systems Constitutional: No problems Breast: No problems ENT: No problems Cardiovascular: No problems Respiratory: No problems Gastrointestinal: No problems Genitourinary: No problems Musculoskeletal: No problems Neurological: No problems Skin: No problems Vital Signs - Temperature Temperature: 96.8 F Temperature Source: Temporal Artery Scan - Pulse Right Sitting Brachial Pulse Rate: 91 Pulse Assessment Method: Automatic Cuff - Respirations Respiratory Rate: 16 Oxygen Delivery Method: Room Air O2 Sat by Pulse Oximetry: 99 - Blood Pressure Right Arm Sitting Blood Pressure: 131/70 Blood Pressure Mean: 90 Blood Pressure Source: Automatic Cuff Medical Screen Scoring (Pre) - Cervical Exam Dilation: Exam Deferred Effacement: Exam Deferred Membranes: Intact - Uterine Contractions Frequency: N/A Duration: N/A Intensity: N/A - Maternal Vital Signs Maternal Temperature: N/A Maternal Blood Pressure: N/A Signs of Preeclampsia: N/A Maternal Respirations: N/A - Maternal Trauma Maternal Trauma: N/A - Assessment Baseline FHR: 130 Heart Rate - NICHD Category: Category II (Indeterminate) = 3 NST: Non-reactive = 3 Position: N/A Station: N/A - Total Score Total Score (Pre): 6 - Level of Risk Level of Risk: Medium (6-9) Physician Notification (Pre) - Physician Notified Physician Notified Date: 10/13/17 Physician Notified Time: 13:15 Physician/Practitioner Notifed:: Chel New Order Received: Yes - Notification Comment Comment: Order BPP; UDS per SW request Medical Screen Scoring (Post) - Cervical Exam Dilation: Exam Deferred Effacement: Exam Deferred Membranes: Intact - Uterine Contractions Frequency: N/A Duration: N/A Intensity: N/A - Maternal Vital Signs Maternal Temperature: N/A Maternal Blood Pressure: N/A Signs of Preeclampsia: N/A Maternal Respirations: N/A - Maternal Trauma Maternal Trauma: N/A - Assessment Heart Rate: 130 Heart Rate - NICHD Category: Category II (Indeterminate) = 3 NST: Non-reactive = 3 Position: N/A Station: N/A - Total Score Total Score (Post): 6 - Post Treatment Level of Risk Post Treatment Level of Risk: Low (0-5) Physician Notification (Post) - Physician Notified Physician Notified Date: 10/13/17 Physician Notified Time: 14:00 Physician/Practitioner Notified:: Chel Spoke With: Chel New Order Received: Yes - Notification Comment Comment: BPP /; Dr. Milligan ordered pt be OBV, consult MFM and repeat BPP in 4 hours. Pt refused to stay, stating needs to make arrangements for 1yr, verbally agreed to return within hour. Pt denied having a phone number, took this RNs work phone number and agreed to call if delay with return. SW and physician notified. Pt left AMA. Disposition - Disposition OB Disposition: Admit, Observe, LDRP Suite Discharge Date: 10/13/17 Discharge Time: 14:22 I agree with the RN Medical Screening Exam: Yes Risk & Benefit of care provided described in d/c instruction: Yes Diagnosis: ABNLT IN HEART RATE AND RHYTHM COMP LABOR AND DELIVERY
== END 2017-10-13 14:20 | disposition left against medical advice (07) ==
LOC: FBPOP 12:37
PROVIDERS: ATTEND Obstetrics & Gynecology
DX: O36.8130 Decreased fetal movements, third trimester, not applicable or unspecified (principal); O76 Abnormality in fetal heart rate and rhythm complicating labor and delivery; Z3A.34 34 weeks gestation of pregnancy
CPT/HCPCS: 59025; 76819; 80306; 99213

== ENCOUNTER 2017-10-13 15:20 | Observation (INO) | payer OTHER ==
[2017-10-13] MEDS ORDERED: BETAMET ACET-BETAMETH SOD PHOS 6 MG/ML VIAL IM SCH (15:45)
[2017-10-13 15:51] VITALS: BP 136/75; PULSE 92; RESP 16; TEMP 96.3; BMI 29.9
[2017-10-13] MEDS ORDERED: LACTATED RINGERS 1,000 ML IV SCH (16:15)
[2017-10-13 17:04] LABS: Basophils % (A) 1 %; Eosinophils % (A) 1 %; HCT 32.1 % (34.0-46.0); Lymphocytes # (A) 1.9 k/uL (1.0-4.8); Lymphocytes % (A) 31 %; MCH 28.6 pg (25.0-35.0); MCHC 34.3 g/dL (31.0-37.0); MCV 83.2 fL (80.0-100.0); Mean Platelet Volume 7.3; Monocytes # (A) 0.5 k/uL (0-1.0); Monocytes % (A) 9 %; Neutrophils # (A) 3.4 k/uL (1.3-7.7); Neutrophils % (A) 55 %; Platelet Count 237 k/uL (150-450); RBC 3.86 m/uL (3.80-5.40); RDW 13.5 % (11.5-15.5); WBC 6.1 k/uL (3.8-10.6)
--- NOTE | 2017-10-13 17:57 | P.HPOB ---
History of Present Illness H&P Date: 10/13/17 Chief Complaint: Nonreactive nonstress test This is a 32-year-old female 3 para 1 with an estimated date of confinement of 11/20/2017, estimated gestational age of 34-4/7 weeks, who presented to labor and delivery today for a nonstress test after she received a certified letter from our office. Apparently she came into the office on October 04 for a ultrasound and appointment but left the office prior to being seen by Dr. Weeks. The glass technician at that time had noted limited movement but normal fluid level. When Dr. Weeks became aware of this on October 11, he attempted to contact the patient but no phone was working and therefore a certified letter was sent but she needed to return for nonstress test and evaluation. The patient arrived in triage today and was placed on the monitor. She did state she was feeling good movement. Her nonstress test was nonreactive and therefore biophysical profile was performed. The biophysical profile was 4 out of 8 and was off for breathing and movement. Her fluid level was 10.2. In light of this finding I spoke with Dr. Antony at [facility] in [place]. He recommended that she be admitted and observed with continuous monitoring and repeat biophysical profile in 4 hours. If her biophysical was still at 4 out of 8, he recommended delivery. If it improved, then he recommended possible transfer to [facility]- medicine. He also recommended that she get Celestone for lung maturity. During her triage visit a urine drug screen was obtained and was positive for opiates and marijuana. She apparently uses marijuana yesterday. She states that she was a heroin user for at least a year and quit 2 years prior to the of her son which was last year. She was very stressed out due to the fact that her is in senior care and she just got evicted. She stated she used heroin 2 days ago. When the patient was told about the need for admission, she got very distraught and left the hospital to go arrange childcare for her son but stated she would return within a half an hour. She did return to the hospital for admission and evaluation of her baby. Obstetrical history: . History of 1 delivery at term due to failed induction and distress. Infant weight 8 lbs. 3 oz. She also had 1 miscarriage. Social history: She is unemployed. She is . Review of Systems Constitutional: Denies chills, Denies fever Eyes: denies blurred vision, denies pain Ears, nose, mouth and throat: Denies headache, Denies sore throat Cardiovascular: Denies chest pain, Denies shortness of breath Respiratory: Denies cough Gastrointestinal: Reports nausea, Reports vomiting, Denies abdominal pain, Denies diarrhea Genitourinary: Reports Musculoskeletal: Reports low back pain Neurological: Denies numbness, Denies weakness Psychiatric: Reports anxiety, Reports depression Past Medical History Past Medical History: No Reported History History of Any Multi-Drug Resistant Organisms: MRSA Date of last positivie culture/infection: 2003 MDRO Source:: right arm Past Surgical History: Section Additional Past Surgical History / Comment(s): Oral surgery wisdom teeth, 1996 Past Anesthesia/Blood Transfusion Reactions: No Reported Reaction Past Psychological History: Anxiety, Depression Smoking Status: Current every day smoker Past Alcohol Use History: None Reported Past Drug Use History: Marijuana, Opiates Additional Drug Use History / Comment(s): States she smoked marijuana one day ago and has used intermittently during the . Patient states approximately 1 year history of heroin use very heavy that ended about 3 years ago. She did use heroin one time 2 days ago. - Past Family History Mother Family Medical History: Hypertension Medications and Allergies Home Medications Medication Instructions Recorded Confirmed Type No Known Home Medications [No 04/18/17 04/18/17 History Known Home Medications] Allergies Allergy/AdvReac Type Severity Reaction Status Date / Time No Known Allergies Allergy Verified 10/13/17 15:33 Exam Osteopathic Statement: *. No significant issues noted on an osteopathic structural exam other than those noted in the History and Physical/Consult. - Vital Signs Vital signs: Vital Signs Temp Pulse Resp BP Pulse Ox 10/13/17 15:32 96.3 F L 92 16 136/75 97 Intake and Output 10/13/17 10/13/17 10/13/17 06:59 14:59 22:59 Other: Weight 84.368 kg HEENT: Within normal limits Heart: Regular rate and rhythm Lungs: Clear to auscultation bilaterally Abdomen: with umbilical hernia visualized. heart tones currently are reactive with no contractions noted. Extremities: Negative Homans Results Result Diagrams: 10/13/17 16:44 Abnormal Lab Results - Last 24 Hours (Table) 10/13/17 Range/Units 16:44 Hgb 11.0 L (11.4-16.0) gm/dL Hct 32.1 L (34.0-46.0) % Assessment and Plan (1) Non-reactive NST (non-stress test) Current Visit: Yes Status: Acute Code(s): O28.8 - OTHER ABNORMAL FINDINGS ON SCREENING OF MOTHER SNOMED Code(s): 854573205 (2) Heroin abuse affecting in third trimester Current Visit: Yes Status: Acute Code(s): O99.323 - DRUG USE COMPLICATING , THIRD TRIMESTER; F11.10 - OPIOID ABUSE, UNCOMPLICATED SNOMED Code(s ): 03718670 Plan: Admission for observation. Will await repeat biophysical profile. Will consult with maternal- medicine depending on results of biophysical profile.
--- NOTE | 2017-10-13 18:30 | P.PN ---
Progress Note - Text Progress Note Date: 10/13/17 Repeat biophysical profile was performed and was 8 out of 8. Her nonstress test is now reactive. I advised the patient that we should keep her overnight and continue to monitor her baby since she was nonreactive and had a biophysical profile of 4 only 4 hours ago. She did receive 1 dose of Celestone and I have advised her that she needs to have a second dose in 24 hours. She states that she cannot stay in the hospital and will sign papers to leave AGAINST MEDICAL ADVICE due to childcare issues. She does state that she will return tomorrow afternoon to receive her second dose of Celestone and be monitored at that time. She states she will return tonight if she has any decrease in movement. I have advised her that she should not do any further drugs when she leaves the hospital. I again stressed to the patient that I disagree with her going home tonight and that I have recommended that she stay until she has her next Celestone shot tomorrow.
--- NOTE | 2017-10-13 18:59 | US ---
EXAMINATION TYPE: US OB BPP wo non-stress DATE OF EXAM: 10/13/2017 COMPARISON: NONE CLINICAL HISTORY: 4/ PRIOR BPP. Reevaluate BPP score done by 2 rigoberto Dejesus and Amarilis Vazquez. EXAM PERFORMED: Transabdominal (TA) BPP PARAMETERS: PRESENTATION: Vertex LIE: Longitudinal?? HEART RATE: 157 bpm RHYTHM: Normal DESHAWN: 11.20 cm DIAPHRAGM IMAGED: YES BPP SCORIN. Breathin (1 episode of breathing of 30 second duration in 30 minutes of scanning time) 2. Movement: 2 (at least 3 discrete body movements in 30 minutes) 3. Tone: 2 (1 episode of active flexion/extension of limb) 4. DESHAWN: 2 (DESHAWN index > 5cm) TOTAL SCORE: 8 / 8 Impression Normal biophysical profile.
== END 2017-10-13 18:53 | disposition left against medical advice (07) ==
LOC: 4FBP 15:20
PROVIDERS: ADMIT Obstetrics & Gynecology; ATTEND Obstetrics & Gynecology
DX: O76 Abnormality in fetal heart rate and rhythm complicating labor and delivery (principal); O28.8 Other abnormal findings on antenatal screening of mother; O99.323 Drug use complicating pregnancy, third trimester; F11.10 Opioid abuse, uncomplicated; Z53.21 Procedure and treatment not carried out due to patient leaving prior to being seen by health care provider; F12.90 Cannabis use, unspecified, uncomplicated; F32.9 Major depressive disorder, single episode, unspecified; F41.9 Anxiety disorder, unspecified; Z82.49 Family history of ischemic heart disease and other diseases of the circulatory system; F17.200 Nicotine dependence, unspecified, uncomplicated; O99.333 Smoking (tobacco) complicating pregnancy, third trimester; Z3A.34 34 weeks gestation of pregnancy; Z86.14 Personal history of Methicillin resistant Staphylococcus aureus infection
CPT/HCPCS: 96360; 96361; 96372; 86900; 86901; 85025; 86850; 76819; G0378; G0379; J0702

== ENCOUNTER 2017-10-14 16:12 | Outpatient (CLI) | payer SELFPAY ==
[2017-10-14] MEDS ORDERED: BETAMET ACET-BETAMETH SOD PHOS 6 MG/ML VIAL IM SCH (17:00)
[2017-10-14 17:41] VITALS: BP 134/69; PULSE 95; RESP 16; TEMP 97.1
--- NOTE | 2017-10-15 09:15 | P.MSEPDOC ---
Presenting Problems - Arrival Data Date of Arrival on Unit: 10/14/17 Time of Arrival on Unit: 16:15 Mode of Transport: Ambulatory - Complaint OB-Reason for Admission/Chief Complaint: NST, Celestone Injection Comment: repeat celestone and nst. Medical History - Information : 3 Para: 1 Term: 1 : 0 Abortions: Spontaneous or Elective: 1 Number of Living Children: 1 - Gestational Age Gestational Age by JEN (wks/days): 34 Weeks and 5 Days - History Complications: Smoker, Other Comment: not showing for u/s. signing self out ama x 2 yesterday. bio 4out of 8 yesterday. repeat= 8out of 8 when repeated. Review of Systems - Review of Systems Constitutional: No problems Breast: No problems ENT: No problems Cardiovascular: No problems Respiratory: No problems Gastrointestinal: No problems Genitourinary: No problems Musculoskeletal: No problems Neurological: No problems Skin: No problems Vital Signs - Temperature Temperature: 97.1 F Temperature Source: Tympanic - Pulse Right Radial Pulse Rate: 95 Pulse Assessment Method: Automatic Cuff - Respirations Respiratory Rate: 16 Oxygen Delivery Method: Room Air O2 Sat by Pulse Oximetry: 99 - Blood Pressure Right Arm Blood Pressure: 134/69 Blood Pressure Mean: 90 Blood Pressure Source: Automatic Cuff Medical Screen Scoring (Pre) - Cervical Exam Dilation: Exam Deferred Membranes: Intact - Uterine Contractions Frequency: N/A Duration: N/A Intensity: N/A - Maternal Vital Signs Maternal Temperature: N/A Maternal Blood Pressure: N/A Signs of Preeclampsia: N/A Maternal Respirations: N/A - Pain Assessment Pain Scale Used: Numeric (1 - 10) Pain Intensity: 0 Pain Behavior: Vocalization - Maternal Trauma Maternal Trauma: N/A - Assessment Heart Rate - NICHD Category: Category I (Normal) = 0 NST: Reactive Position: N/A Station: N/A - Total Score Total Score (Pre): 0 - Level of Risk Level of Risk: Low (0-5) Physician Notification (Pre) - Physician Notified Physician Notified Date: 10/14/17 Physician Notified Time: 16:15 Physician/Practitioner Notifed:: zeynep Spoke With: zeynep New Order Received: Yes - Notification Comment Comment: celestone shot given , reactive nst. to see dr avelar on tuesday. return if problems/conserns Disposition - Disposition OB Disposition: Discharge to home Discharge Date: 10/14/17 Discharge Time: 17:00 I agree with the RN Medical Screening Exam: Yes Risk & Benefit of care provided described in d/c instruction: Yes Diagnosis: DECREASED MOVEMENTS, THIRD TRIMESTER, FETUS 1
== END 2017-10-14 17:00 | disposition home or self-care (01) ==
LOC: FBPOP 16:12
PROVIDERS: ATTEND Obstetrics & Gynecology
DX: O36.8131 Decreased fetal movements, third trimester, fetus 1 (principal); Z3A.34 34 weeks gestation of pregnancy; O99.333 Smoking (tobacco) complicating pregnancy, third trimester
CPT/HCPCS: 59025; 96372; G0463; J0702; 99214

== ENCOUNTER 2017-11-01 08:56 | Inpatient (IN) | payer OTHER ==
[2017-11-01] MEDS ORDERED: KETOROLAC 30 MG/ML 1 ML VIAL ONE (10:45)
[2017-11-01] MEDS ORDERED: ONDANSETRON 4 MG/2 ML VIAL ONE (10:45)
[2017-11-01] MEDS ORDERED: MIDAZOLAM 2 MG/2 ML VIAL ONE (10:45)
[2017-11-01] MEDS ORDERED: MORPHINE SULFATE (PF) 0.3 MG/0.3 ML SYR ONE (10:45)
[2017-11-01] MEDS ORDERED: OXYTOCIN 10 UNIT/ML 1 ML VIAL ONE (10:45)
[2017-11-01] MEDS ORDERED: CITRIC ACID-SODIUM CITRATE 15 ML CUP PO ONE (11:13)
[2017-11-01] MEDS ORDERED: NALOXONE 0.4 MG/ML 1 ML VIAL IV PRN ×2 (11:33→12:12)
[2017-11-01] MEDS ORDERED: diphenhydrAMINE 50 MG/ML 1 ML VIAL IVP PRN ×2 (11:33)
[2017-11-01] MEDS ORDERED: MEASLES-MUMPS-RUBELLA VACC/PF 12,500 UNIT/0.5 ML VIAL SQ ONE (11:33)
[2017-11-01] MEDS ORDERED: HYDROcodone/APAP 5-325MG 1 EACH TAB PO PRN (11:33)
[2017-11-01] MEDS ORDERED: diphenhydrAMINE 50 MG CAP PO PRN (11:33)
[2017-11-01] MEDS ORDERED: IBUPROFEN 600 MG TAB PO PRN (11:33)
[2017-11-01] MEDS ORDERED: ACETAMINOPHEN TAB 325 MG TAB PO PRN (11:33)
[2017-11-01] MEDS ORDERED: diphenhydrAMINE 25 MG CAP PO PRN (11:33)
[2017-11-01] MEDS ORDERED: METOCLOPRAMIDE 5 MG/ML 2 ML VIAL IVP PRN (11:33)
[2017-11-01] MEDS ORDERED: ONDANSETRON 4 MG/2 ML VIAL IVP PRN ×2 (11:33→12:12)
[2017-11-01] MEDS: LACTATED RINGERS 1,000 ML IV SCH ×2 (11:36→19:17)
--- NOTE | 2017-11-01 11:39 | P.HPOB ---
History of Present Illness H&P Date: 11/01/17 Chief Complaint: Intrauterine at term: Prior section Patient is a [id number] at 37 weeks gestation in active withdrawal from heroin. She initially started seeing me for this at approximately 12 weeks and had sporadic care during the entire regnancy. She was supposed to be seeing me every 2 weeks and then every week after approximately 31 weeks however , she did not return after 31 weeks which was on September 19. We called her and got no answer we called that phone number listed as an emergency contact and the fundus. We sent a certified male to get her to return to the office but she refused to return to the office. She ryes today in active withdrawal ivelisse every 2 minutes and dilated to 3 cm making cervical change. After discussion with the patient will plan to do repeat section with tubal ligation at her request. Risks/benefits/alternatives were reviewed with the patient in detail and all questions were answered for the patient prior to proceeding to the operating room. A urine drug screen has been obtained during the section as when she was in the bathroom earlier she through the sample way knowing that we would request 1. Will notify medicine and have them consult for comanagement of withdrawal symptoms. Past Medical History Past Medical History: No Reported History History of Any Multi-Drug Resistant Organisms: MRSA Date of last positivie culture/infection: 2003 MDRO Source:: right arm Past Surgical History: Section Additional Past Surgical History / Comment(s): Oral surgery wisdom teeth, 1996 Past Anesthesia/Blood Transfusion Reactions: No Reported Reaction Smoking Status: Current every day smoker - Past Family History Mother Family Medical History: Hypertension Medications and Allergies Home Medications Medication Instructions Recorded Confirmed Type Pnv,Calcium 72/Iron/Folic Acid 1 cap PO DAILY 10/14/17 11/01/17 History [ Plus Tablet] Allergies Allergy/AdvReac Type Severity Reaction Status Date / Time No Known Allergies Allergy Verified 11/01/17 09:00 Exam Osteopathic Statement: *. No significant issues noted on an osteopathic structural exam other than those noted in the History and Physical/Consult. Intake and Output 10/31/17 11/01/17 11/01/17 22:59 06:59 14:59 Other: Weight 81.647 kg - OBG Physical Exam Abdomen: bowel sounds normal, no diffuse tenderness, no bruit present, no guarding noted, no hepatomegaly, no splenomegaly, no mass Vulva: both: normal Vagina: normal moisture, no discharge Cervix: no lesion, no discharge Uterus: normal size, enlarged, normal contour Anus/Rectum: normal perianal skin, no rectal mass, no hemorrhoids, heme negative
[2017-11-01] MEDS ORDERED: LACTATED RINGERS 1,000 ML IV SCH (11:45)
--- NOTE | 2017-11-01 11:48 | P.OP ---
Date of Procedure: 11/01/17 Preoperative Diagnosis: Intrauterine at term: Active labor: Prior section: Heroin withdrawal: Family planning Postoperative Diagnosis: Same Procedure(s) Performed: Repeat low transverse section with bilateral partial salpingectomy Anesthesia: spinal Surgeon: Sunny Weeks Superintendent Horticulture #1: Delisa Ragsdale Estimated Blood Loss (ml): 400 Urine output (ml): 20 Pathology: other (Placenta) Condition: other (Guarded) Disposition: floor Operative Findings: Female scores of 9 and 9 at one and 5 minutes respectively and the weight of 5 lbs. 5 oz. Description of Procedure: Patient was taken to the operating suite where a spinal anesthetic was found be adequate. She was prepped and draped in the normal sterile fashion and placed in the dorsal supine position with leftward tilt. Initially a Pfannenstiel skin incision was made and this incision was then carried through to underlying layer of the fascia with the second knife. Fascia was then nicked in midline and this opening was extended laterally with Stanton scissors. Superior and into the inferior aspect of this incision were then grasped tented up and bluntly and sharply dissected off the rectus muscles. Rectus muscle then divided the midline and blunt dissection through the peritoneum was made. This opening was then extended superiorly and inferiorly with good visualization of both bowel bladder. Bladder blade was then placed and the bladder flap identified. It was entered sharply with Metzenbaum scissors and this opening was extended across the face the uterus with Metzenbaum scissors. Bladder was then bluntly dissected out of the operative field. Knife was then used to incise uterus this opening was extended to fully with hemostat and then bluntly. Head was then H medically delivered followed by the remainder the baby. Umbilical cord was allowed to pulsate for 30 seconds prior to clamping and cutting. Nursery personnel was present to assume care and bulb suction mouth nares. Once this was accomplished Ascent was then delivered intact and Pitocin was added to the IV. Uterus was then exteriorized cleared of clots and debris and closed in 2 layers with 0 Vicryl suture. Once excellent hemostasis was obtained attention was turned to the fallopian tubes. First the right tube than left tube had a window created in the mesosalpinx and a hemostat grasping the tube 2 cm from uterine cornu. 2 proximal and 2 distal 2-0 silk sutures were then placed and intervening septal approximate 2 cm segment was excised and tips were cauterized. Blood and debris was then suctioned from the posterior cul-de-sac and the uterus was reinserted into the abdomen. Peritoneal layer was then closed with 0 Vicryl suture fascial layer was closed with 0 Vicryl suture one layer of 3-0 Vicryl was placed in the deep subcuticular tissues to reapproximate the skin and close space and the skin was then closed with 3- 0 Vicryl. Sponge, lap, needle counts were correct 2 and patient was taken to the recovery room in stable and satisfactory condition. It should be noted that throughout the latter part of the section she was essentially [id number] writhing reaching up trying to touch her abdomen and coming over the drape she was unable to be restrained well due to her strength and her insistence that she could not control her arms due to her withdrawal symptoms. She will Report relating that she was having spasms despite the movements that appeared to be planned including prepping my arm during the case. We'll add 2 more doses of antibiotics as a precaution against infection. branch services manager will be consult.
[2017-11-01 11:57] VITALS: BMI 28.6
[2017-11-01] MEDS ORDERED: MORPHINE SULFATE 2 MG/ML SYRINGE IVP PRN (12:12)
[2017-11-01] MEDS ORDERED: KETOROLAC 30 MG/ML 1 ML VIAL IVP PRN (12:12)
[2017-11-01 13:41] LABS: Amphetamine Screen,Urine Not Detected (NotDetected); Barbiturate Screen,Urine Not Detected (NotDetected); Benzodiazepines Screen,Urine Not Detected (NotDetected); Cocaine Screen,Urine Not Detected (NotDetected); Methadone Screen, Urine Not Detected (NotDetected); Opiate Screen,Urine Detected (NotDetected); Oxycodone Screen, Urine Not Detected (NotDetected); Phencyclidine Screen,Urine Not Detected (NotDetected); Tricyclic Antidepressant,Urine Not Detected (NotDetected); Urn Cannabinoid Scrn Detected (NotDetected)
--- NOTE | 2017-11-01 16:07 | P.CN ---
Psychiatric Consult - . Consult date: 11/01/17 Consult:: The patient is a 32-year-old female has history of an opiate use disorder. She was admitted to the obstetric unit for a section. The commissioning editor submitted a psychiatric consult due to opiate withdrawal symptoms. History of present illness: I reviewed the medical record and interviewed the patient. She gave a history of heroin use beginning when she was 26 years old. At her worse, she was injecting hearing multiple times per day. She alleged that she was abstinent after a self detox for 3 years. She relapsed in December last year when she learned that she was . She talked about the stress of having to care for a 3-month-old, marital difficulties and her 's legal problems. Her use was intermittent but worsened when her was incarcerated for 30 days. She says she last injected heroin on 10/30/2017. She experienced classic opiate withdrawal symptoms that have been relieved with Vicodin. We discussed treatment options for the opiate withdrawal and for the treatment of her opiate use disorder. She stated that she does not want prescriptions for medications for treatment of withdrawal. She also stated that she does not want to referral to an opiate substitution program either to a physician license to prescribe Suboxone or to a methadone maintenance clinic. She is ambivalent about entering a non-substitution substance abuse treatment program. She believes that she can stop using heroin on her own as she did approximately 3 years ago. However, she understands the consequences of having delivered a child when she was using heroin. She understands that child protective services may not allow her custody of the child after she leaves the hospital. Her has threatened to the petition for full custody of child due to her drug use disorder. She is open to a referral to a non-substitution substance abuse treatment program. Mental status examination she presented as a casually dressed 32-year-old female who was pleasant on approach. She made eye contact and attended to the interview. Intermittently she appeared to be in pain. She became tearful and markedly distressed when talking about the possibility of child protective services and lost of custody of her children. She showed no abnormality of psychomotor activity. She had no abnormal movements. Her speech was spontaneous with the rate, volume and rhythm consistent with her mood. Her affect was depressed but stable and appropriate. She denied suicidal ideation or wishes. She denied feeling hopeless, helpless or worthless. She did not express ideas reference, paranoid ideation or delusions. Her thinking was abstract and associations were coherent and logical. She denied hallucinations and did not appear to be responding to internal stimuli. Impression: opiate withdrawal, opiate use disorder severe Recommendations: please consult EPS prior to discharge to provide to provide her with information on how to access substance abuse services available at community. Her opiate withdrawal symptoms could be managed with same medications prescribed for the treatment of pain. 11/01/17 15:54
[2017-11-01] MEDS: KETOROLAC 30 MG/ML 1 ML VIAL IVP PRN (16:29)
[2017-11-01] MEDS ORDERED: LOPERAMIDE 2 MG CAP PO PRN (16:43)
[2017-11-01] MEDS: ceFAZolin IN SWFI 2 GM/20 ML SYRINGE IVP SCH (18:06)
[2017-11-01] MEDS ORDERED: LORazepam 2 MG/ML INJ IV STA (18:39)
[2017-11-01] MEDS: SENNOSIDES-DOCUSATE SODIUM 1 EACH TAB PO SCH (20:33)
[2017-11-02] MEDS: KETOROLAC 30 MG/ML 1 ML VIAL IVP PRN ×2 (00:25→06:50)
[2017-11-02 01:54] LABS: Hepatitis A Antibody IgM Non-Reactive (Non-Reactive); Hepatitis B Core IgM Non-Reactive (Non-Reactive)
[2017-11-02] MEDS: LACTATED RINGERS 1,000 ML IV SCH (06:41)
[2017-11-02] MEDS: ceFAZolin IN SWFI 2 GM/20 ML SYRINGE IVP SCH (06:41)
[2017-11-02 07:54] LABS: ALT 36 U/L (9-52); AST 38 U/L (14-36); Albumin 3.2 g/dL (3.5-5.0); Alkaline Phosphatase 116 U/L (38-126); Anion Gap 10 mmol/L; Blood Urea Nitrogen 8 mg/dL (7-17); Calcium 9.3 mg/dL (8.4-10.2); Carbon Dioxide 23 mmol/L (22-30); Chloride 101 mmol/L (98-107); Glucose 74 mg/dL (74-99); Potassium 4.1 mmol/L (3.5-5.1); Sodium 134 mmol/L (137-145); Total Bilirubin 0.5 mg/dL (0.2-1.3); Total Protein 5.8 g/dL (6.3-8.2)
[2017-11-02 08:05] LABS: Basophils % (A) 0 %; Eosinophils % (A) 0 %; HCT 31.3 % (34.0-46.0); HGB 10.7 gm/dL (11.4-16.0); Lymphocytes # (A) 1.4 k/uL (1.0-4.8); Lymphocytes % (A) 15 %; MCH 28.5 pg (25.0-35.0); MCHC 34.2 g/dL (31.0-37.0); MCV 83.3 fL (80.0-100.0); Mean Platelet Volume 6.9; Monocytes # (A) 0.6 k/uL (0-1.0); Monocytes % (A) 7 %; Neutrophils # (A) 6.7 k/uL (1.3-7.7); Neutrophils % (A) 75 %; Platelet Count 250 k/uL (150-450); RBC 3.76 m/uL (3.80-5.40); RDW 14.1 % (11.5-15.5)
[2017-11-02] MEDS ORDERED: IBUPROFEN 600 MG TAB PO SCH (09:00)
--- NOTE | 2017-11-02 09:03 | P.PNOBGPC ---
Subjective - Subjective Principal diagnosis: Postop day 1 Interval history: Sonya is ambulating, voiding and she is tolerating her diet. Overall she reports no complaints. She is refusing all narcotics at this time for pain relief and only Motrin is being offered. All other questions are answered for her at this time. Symptoms of withdrawal are well controlled at this time with current regimen. Objective - Vital Signs Latest vital signs: Vital Signs Temp Pulse Pulse Resp BP Pulse Ox 11/02/17 05:00 16 98 11/02/17 04:00 98.4 F 80 16 130/60 11/02/17 03:00 16 11/02/17 01:00 98 11/02/17 00:00 98.4 F 80 16 131/71 11/01/17 21:00 98 11/01/17 20:00 98.6 F 80 16 128/49 11/01/17 19:00 16 11/01/17 17:12 98 11/01/17 17:00 16 11/01/17 13:33 76 16 145/88 98 11/01/17 13:12 16 98 11/01/17 13:03 71 71 16 178/90 98 11/01/17 12:33 78 16 149/85 98 11/01/17 12:12 16 98 11/01/17 12:03 81 16 154/75 98 11/01/17 11:48 97.7 F 99 16 124/58 99 11/01/17 11:33 98 F 99 16 130/72 97 11/01/17 11:13 98.1 F 16 99 Intake and Output 11/01/17 11/02/17 11/02/17 22:59 06:59 14:59 Output Total 500 400 Balance -500 -400 Output: Urine 500 400 Uretheral (Castellanos) 300 Other: Voiding Method Indwelling Catheter # Voids 1 - Exam Lungs: bilateral: wheezes Chest: Normal S1, Normal S2 Extremities: Present: edema Abdomen: Present: normal appearance, soft. Absent: distention, tenderness Incision: Present: normal, dry, intact Uterus: Present: normal (Some wheezing is noted and she has a cough. We will defer to medicine for further care), firm - Labs Labs: Abnormal Lab Results - Last 24 Hours (Table) 11/01/17 11/02/17 11/02/17 Range/Units 11:10 07:31 07:31 RBC 3.76 L (3.80-5.40) m/uL Hgb 10.7 L (11.4-16.0) gm/dL Hct 31.3 L (34.0-46.0) % Sodium 134 L (137-145) mmol/L AST 38 H (14-36) U/L Total Protein 5.8 L (6.3-8.2) g/dL Albumin 3.2 L (3.5-5.0) g/dL Urine Opiates Screen Detected H (NotDetected) U Methamphetamines Scrn Detected H (NotDetected) U Marijuana (THC) Screen Detected H (NotDetected)
[2017-11-02] MEDS: SENNOSIDES-DOCUSATE SODIUM 1 EACH TAB PO SCH (09:25)
[2017-11-02 12:17] VITALS: BP 102/68; PULSE 100; TEMP 98.3
[2017-11-02 13:10] VITALS: RESP 20
[2017-11-02] MEDS ORDERED: NICOTINE 21MG/24HR PATCH TRANSDERM SCH (14:45)
[2017-11-02] MEDS ORDERED: ALBUTEROL NEBULIZED 2.5 MG/3 ML INHALATION PRN (15:12)
--- NOTE | 2017-11-02 15:15 | P.PN ---
Subjective Patient is coming of severe pain in the surgical site area. Patient has some reason bronchitis will use a small dose of Augmentin for 3 days and albuterol to thin the secretions as patient is coughing patient is having pain in the surgical site area. Patient is declining any opiates but the because of uncontrolled pain with ibuprofen [facility] [facility] using low-dose of [place] Objective - Vital Signs Vital signs: Vital Signs Temp 98.3 F 11/02/17 12:00 Pulse 100 11/02/17 12:00 Resp 20 11/02/17 13:00 BP 102/68 11/02/17 12:00 Pulse Ox 98 11/02/17 12:00 Intake & Output 11/01/17 11/02/17 11/02/17 18:59 06:59 18:59 Output Total 500 400 Balance -500 -400 Weight 81.647 kg Output: Urine 500 400 Uretheral (Castellanos) 300 Other: Voiding Method Indwelling Catheter Indwelling Catheter # Voids 1 1 # Bowel Movements 0 - Exam PHYSICAL EXAMINATION: GENERAL: The patient is alert and oriented x3, not in any acute distress. Well developed, well nourished. HEENT: Pupils are round and equally reacting to light. EOMI. No scleral icterus. No conjunctival pallor. Normocephalic, atraumatic. No pharyngeal erythema. No thyromegaly. CARDIOVASCULAR: S1 and S2 present. No murmurs, rubs, or gallops. PULMONARY: Rhonchus breath sounds with minimal expiratory wheeze ABDOMEN: Soft, nontender, nondistended, normoactive bowel sounds. No palpable organomegaly. MUSCULOSKELETAL: No joint swelling or deformity. EXTREMITIES: No cyanosis, clubbing, or pedal edema. NEUROLOGICAL: Gross neurological examination did not reveal any focal deficits. SKIN: No rashes. - Labs CBC & Chem 7: 11/02/17 07:31 11/02/17 07:31 Labs: Abnormal Lab Results - Last 24 Hours (Table) 11/02/17 11/02/17 Range/Units 07:31 07:31 RBC 3.76 L (3.80-5.40) m/uL Hgb 10.7 L (11.4-16.0) gm/dL Hct 31.3 L (34.0-46.0) % Sodium 134 L (137-145) mmol/L AST 38 H (14-36) U/L Total Protein 5.8 L (6.3-8.2) g/dL Albumin 3.2 L (3.5-5.0) g/dL Assessment and Plan Plan: -Opiate withdrawal: Patient was having minimal withdrawal symptoms plan is to try and avoid opiates as much as we can. -Possible bacterial bronchitis because of which patient is coughing which is leading to pain in the surgical site area. We'll use Augmentin and albuterol as needed. Patient does have smoking history. -Marijuana use and methamphetamine use: Counseling was provided Ruled out viral hepatitis
[2017-11-02] MEDS ORDERED: ALBUTEROL INHALER 60 PUFF/8 GM INHALER INHALATION SCH (20:00)
[2017-11-02] MEDS ORDERED: AMOXIC-POT CLAV 500-125 MG 1 EACH TAB PO SCH (21:00)
== END 2017-11-02 17:00 | disposition home or self-care (01) | DRG 765 ==
LOC: FBPOP 08:56 → 4FBP 09:20
PROVIDERS: ADMIT Obstetrics & Gynecology; ATTEND Obstetrics & Gynecology
PROC: 0UB70ZZ Excision of Bilateral Fallopian Tubes, Open Approach (ICD-10-PCS; 2017-11-01)
PROC: 3E0134Z Introduction of Serum, Toxoid and Vaccine into Subcutaneous Tissue, Percutaneous Approach (ICD-10-PCS; 2017-11-01)
PROC: 10D00Z1 Extraction of Products of Conception, Low, Open Approach (ICD-10-PCS; principal; 2017-11-01 10:45)
DX: O75.82 Onset (spontaneous) of labor after 37 completed weeks of gestation but before 39 completed weeks gestation, with delivery by (planned) cesarean section (principal); O99.324 Drug use complicating childbirth; F11.23 Opioid dependence with withdrawal; O34.211 Maternal care for low transverse scar from previous cesarean delivery; O99.334 Smoking (tobacco) complicating childbirth; F17.200 Nicotine dependence, unspecified, uncomplicated; O99.52 Diseases of the respiratory system complicating childbirth; J40 Bronchitis, not specified as acute or chronic; Z23 Encounter for immunization; Z30.2 Encounter for sterilization; Z37.0 Single live birth; Z3A.37 37 weeks gestation of pregnancy; N85.8 Other specified noninflammatory disorders of uterus; Z71.51 Drug abuse counseling and surveillance of drug abuser; Z79.899 Other long term (current) drug therapy; Z87.442 Personal history of urinary calculi; Z86.14 Personal history of Methicillin resistant Staphylococcus aureus infection; Z82.49 Family history of ischemic heart disease and other diseases of the circulatory system
CPT/HCPCS: 80053; 80074; 80306; 85025; 88302; 88307; 99213

== ENCOUNTER 2017-12-02 23:36 | Emergency (ER) | payer OTHER ==
[2017-12-02 23:44] VITALS: BP 117/65; PULSE 99; RESP 16; TEMP 98.7
--- NOTE | 2017-12-03 00:35 | ED ---
Overdose HPI - General Chief Complaint: Overdose Stated Complaint: Drug Overdose Time Seen by Provider: 12/02/17 23:50 Source: patient, police, EMS Mode of arrival: EMS Limitations: no limitations - History of Present Illness Initial Comments: Patient's a 32-year-old woman with history of previous heroin addiction who presents to be evaluated for suspected overdose. The patient states that she had been clean for number of months and then had relapsed. She had used heroin tonight and then appeared to be unconscious so EMS was called. They bring the patient here for evaluation. The patient states that she is getting ready to enter rehab, and that she goes in next week. She was using tonight in an effort to prevent withdrawal sickness. She states that she is not having any suicidal ideation. MD Complaint: accidental overdose -: minutes(s) Context: Accidental Overdose: other Associated Symptoms: lethargy Treatments Prior to Arrival: none - Related Data Home Medications Medication Instructions Recorded Confirmed Pnv,Calcium 72/Iron/Folic Acid 1 cap PO DAILY 10/14/17 11/01/17 [ Plus Tablet] Allergies Allergy/AdvReac Type Severity Reaction Status Date / Time No Known Allergies Allergy Verified 11/01/17 09:00 Review of Systems ROS Statement: Those systems with pertinent positive or pertinent negative responses have been documented in the HPI. ROS Other: All systems not noted in ROS Statement are negative. Constitutional: Denies: fever, chills, weakness Eyes: Denies: vision change Respiratory: Denies: cough, dyspnea Cardiovascular: Denies: chest pain Gastrointestinal: Denies: abdominal pain, vomiting, diarrhea Musculoskeletal: Denies: back pain Skin: Denies: rash Neurological: Denies: headache, weakness, numbness Psychiatric: Denies: homicidal thoughts, suicidal thoughts Past Medical History Past Medical History: No Reported History History of Any Multi-Drug Resistant Organisms: MRSA Date of last positivie culture/infection: 2003 MDRO Source:: right arm Past Surgical History: Section Additional Past Surgical History / Comment(s): Oral surgery wisdom teeth, 1996 Past Anesthesia/Blood Transfusion Reactions: No Reported Reaction Past Psychological History: Anxiety, Depression Smoking Status: Current every day smoker Past Alcohol Use History: None Reported Past Drug Use History: Marijuana, Opiates - Past Family History Mother Family Medical History: Hypertension General Exam Limitations: no limitations General appearance: alert, in no apparent distress, other (Patient is alert and oriented 3.) Head exam: Present: atraumatic, normocephalic Eye exam: Present: normal appearance. Absent: scleral icterus, conjunctival injection ENT exam: Present: normal oropharynx Neck exam: Present: normal inspection Respiratory exam: Present: normal lung sounds bilaterally. Absent: respiratory distress, wheezes, rales, rhonchi, stridor Cardiovascular Exam: Present: regular rate, normal rhythm, normal heart sounds. Absent: systolic murmur, diastolic murmur, rubs, gallop GI/Abdominal exam: Present: soft. Absent: distended, tenderness, guarding, rebound Neurological exam: Present: alert, oriented X3 Psychiatric exam: Present: normal affect, normal mood. Absent: homicidal ideation, suicidal ideation Skin exam: Present: warm, dry, normal color, other (Fax dorsum of left hand) Course Vital Signs 12/02/17 23:39 Temperature 98.7 F Pulse Rate 99 Respiratory 16 Rate Blood Pressure 117/65 O2 Sat by Pulse 99 Oximetry Medical Decision Making - EKG Data -: EKG Interpreted by Vt EKG shows normal: sinus rhythm, axis (Normal), intervals (Normal), QRS complexes (Normal), ST-T waves (Normal) Rate: normal (Rate 79 bpm) Interpretation: LVH (There are voltage criteria for LVH) Disposition Clinical Impression: Heroin abuse Disposition: Left Against Medical Advice Condition: Undetermined Instructions: Narcotic Abuse (ED) Is patient prescribed a controlled substance at d/c from ED?: No Referrals: José Cole MD [Primary Care Provider] - 1-2 days
== END 2017-12-03 01:48 | disposition left against medical advice (07) ==
LOC: EC 23:36
DX: F11.10 Opioid abuse, uncomplicated (principal); R53.83 Other fatigue; F17.200 Nicotine dependence, unspecified, uncomplicated; Z86.14 Personal history of Methicillin resistant Staphylococcus aureus infection
CPT/HCPCS: 93005; 99284

== ENCOUNTER 2018-05-21 13:16 | Emergency (ER) | payer OTHER ==
[2018-05-21 13:25] VITALS: RESP 18; TEMP 97.9
[2018-05-21] MEDS ORDERED: KETOROLAC 30 MG/ML 1 ML VIAL IVP STA (13:43)
--- NOTE | 2018-05-21 13:48 | ED ---
Skin/Abscess/FB HPI - General Chief complaint: Skin/Abscess/Foreign Body Stated complaint: Arm Abscess Time Seen by Provider: 05/21/18 13:36 Source: patient Mode of arrival: ambulatory Limitations: no limitations - History of Present Illness Initial comments: 33-year-old female with past medical history of IV drug use, previous MRSA infection and hepatitis C presenting today for chief complaint of bilateral forearm abscesses. Patient states she's been using heroin for the past week, last used yesterday evening. She noticed some small bumps on her left forearm, she states she has experienced before and usually go away. Patient states the area on her right forearm began last night and the redness has significantly increased in the past 24 hours. Patient states the area is warm and tender to palpation. She denies surrounding erythema of the abscesses of the left forearm , 2 total. Patient denies any recent fever, chills, night sweats, shortness of breath, chest pain, back pain, abdominal pain, nausea or vomiting, numbness or tingling, dysuria or hematuria, constipation or diarrhea, headaches or visual changes, or any other complaints. Upon arrival pt BP elevated, HR increased. Afebrile. Well appearing. - Related Data Previous Rx's Medication Instructions Recorded Cephalexin [Keflex] 500 mg PO Q6HR 7 Days #28 cap 05/21/18 Sulfamethox-Tmp 800-160Mg [Bactrim 1 tab PO Q12HR 7 Days #14 tab 05/21/18 DS 800-160 mg] Allergies Allergy/AdvReac Type Severity Reaction Status Date / Time No Known Allergies Allergy Verified 05/21/18 13:49 Review of Systems ROS Statement: Those systems with pertinent positive or pertinent negative responses have been documented in the HPI. ROS Other: All systems not noted in ROS Statement are negative. Past Medical History Past Medical History: No Reported History Additional Past Medical History / Comment(s): Hep C History of Any Multi-Drug Resistant Organisms: MRSA Date of last positivie culture/infection: 2003 MDRO Source:: right arm Past Surgical History: Section Additional Past Surgical History / Comment(s): Oral surgery wisdom teeth, 1996 Past Anesthesia/Blood Transfusion Reactions: No Reported Reaction Past Psychological History: Anxiety, Depression Smoking Status: Current every day smoker Past Alcohol Use History: None Reported Past Drug Use History: IV Drug Use, Marijuana, Opiates - Past Family History Mother Family Medical History: Hypertension General Exam - General Exam Comments Initial Comments: General: The patient is awake and alert, in no distress, and does not appear acutely ill. Eye: +3 mm pupils are equal, round and reactive to light, extra-ocular movements are intact. No nystagmus. There is normal conjunctiva bilaterally. No signs of icterus. Ears, nose, mouth and throat: There are moist mucous membranes and no oral lesions. Neck: The neck is supple, there is no tenderness or JVD. Cardiovascular: There is a regular rate and rhythm. No murmur, rub or gallop is appreciated. Respiratory: Lungs are clear to auscultation, respirations are non-labored, breath sounds are equal. No wheezes, stridor, rales, or rhonchi. Gastrointestinal: Soft, non-distended, non-tender abdomen without masses or organomegaly noted. There is no rebound or guarding present. No CVA tenderness. Bowel sounds are unremarkable. Musculoskeletal: Normal ROM, no tenderness. Strength 5/5. Sensation intact. Pulses equal bilaterally 2+. Neurological: A&O x 3. CN II-XII intact, There are no obvious motor or sensory deficits. Coordination appears grossly intact. Speech is normal. Skin: Skin is warm and dry and no rashes or lesions are noted. track banuelos on the UE. <1cm small raised area near dorsal aspect of left wrist, no fluctuance. 1cm circular area of induration without fluctuance of the left forearm dorsal aspect, minimal tenderness to palpation no surrounding erythema. Large area of erythema just distal to the right AC, indurated- no fluctuance. Warm and tender to palpation. Psychiatric: Cooperative, appropriate mood & affect, normal judgment. Limitations: no limitations Course Vital Signs 05/21/18 05/21/18 05/21/18 13:23 15:25 17:01 Temperature 97.9 F Pulse Rate 105 H 86 92 Respiratory 18 18 18 Rate Blood Pressure 153/98 134/63 143/90 O2 Sat by Pulse 97 100 100 Oximetry Medical Decision Making - Medical Decision Making 33-year-old IV drug user with previous MRSA infection presenting for cellulitis and abscess. Patient stated right forearm significant spread over the course of the evening. There is a large area of cellulitis that is indurated and tender to palpation. No areas of fluctuance. No palpable distinct abscesses. 2 other small lesions raised indurated areas with no fluctuance on the left upper extremity. X-rays obtained to rule out retained foreign body from needle stick. No evidence of foreign body or gas within the soft tissues of the forearms bilaterally. At this time given hx and extent/rapidly progressive right UE cellulitis patient admitted for IV antibiotics and consult with infectious disease. Dr. mSallwood accepted admission. Patient left AMA following arrangement of placement. I did give outpatient abx prior to patient leaving. I urged patient to stay, pt refused. I discussed the case throughout course with Dr. Menjivar. - Lab Data Result diagrams: 05/21/18 14:34 05/21/18 14:34 Lab Results 05/21/18 05/21/18 Range/Units 14:34 14:34 WBC 11.5 H (3.8-10.6) k/uL RBC 4.96 (3.80-5.40) m/uL Hgb 13.8 (11.4-16.0) gm/dL Hct 41.8 (34.0-46.0) % MCV 84.3 (80.0-100.0) fL MCH 27.9 (25.0-35.0) pg MCHC 33.1 (31.0-37.0) g/dL RDW 13.8 (11.5-15.5) % Plt Count 285 (150-450) k/uL Neutrophils % 76 % Lymphocytes % 16 % Monocytes % 4 % Eosinophils % 2 % Basophils % 0 % Neutrophils # 8.7 H (1.3-7.7) k/uL Lymphocytes # 1.8 (1.0-4.8) k/uL Monocytes # 0.5 (0-1.0) k/uL Eosinophils # 0.2 (0-0.7) k/uL Basophils # 0.0 (0-0.2) k/uL Sodium 135 L (137-145) mmol/L Potassium 4.2 (3.5-5.1) mmol/L Chloride 100 (98-107) mmol/L Carbon Dioxide 24 (22-30) mmol/L Anion Gap 11 mmol/L BUN 17 (7-17) mg/dL Creatinine 0.42 L (0.52-1.04) mg/dL Est GFR (CKD-EPI)AfAm >90 (>60 ml/min/1.73 sqM) Est GFR (CKD-EPI)NonAf >90 (>60 ml/min/1.73 sqM) Glucose 84 (74-99) mg/dL Calcium 9.8 (8.4-10.2) mg/dL Total Bilirubin 1.1 (0.2-1.3) mg/dL AST 39 H (14-36) U/L ALT 59 H (9-52) U/L Alkaline Phosphatase 83 (38-126) U/L C-Reactive Protein 16.9 H (<10.0) mg/L Total Protein 7.9 (6.3-8.2) g/dL Albumin 4.4 (3.5-5.0) g/dL Disposition Clinical Impression: Cellulitis and abscess of unspecified site Disposition: ADMITTED IP TO THIS HOSP Condition: Stable Is patient prescribed a controlled substance at d/c from ED?: No Time of Disposition: 16:54
--- NOTE | 2018-05-21 13:58 | XR ---
EXAMINATION TYPE: XR forearm bilateral , 4 VIEWS DATE OF EXAM ORDERED: 05/21/2018 HISTORY: foreign body/gas. COMPARISON: None. FINDINGS: No fracture or dislocation is seen. No radiopaque or radiolucent loose bodies are seen. IMPRESSION: NORMAL BILATERAL FOREARMS.
[2018-05-21 14:51] LABS: Basophils % (A) 0 %; Eosinophils # (A) 0.2 k/uL (0-0.7); Eosinophils % (A) 2 %; HCT 41.8 % (34.0-46.0); HGB 13.8 gm/dL (11.4-16.0); Lymphocytes # (A) 1.8 k/uL (1.0-4.8); Lymphocytes % (A) 16 %; MCH 27.9 pg (25.0-35.0); MCHC 33.1 g/dL (31.0-37.0); MCV 84.3 fL (80.0-100.0); Mean Platelet Volume 6.5; Monocytes # (A) 0.5 k/uL (0-1.0); Monocytes % (A) 4 %; Neutrophils # (A) 8.7 k/uL (1.3-7.7); Neutrophils % (A) 76 %; Platelet Count 285 k/uL (150-450); RBC 4.96 m/uL (3.80-5.40); RDW 13.8 % (11.5-15.5); WBC 11.5 k/uL (3.8-10.6)
[2018-05-21 15:03] LABS: ALT 59 U/L (9-52); AST 39 U/L (14-36); Albumin 4.4 g/dL (3.5-5.0); Alkaline Phosphatase 83 U/L (38-126); Anion Gap 11 mmol/L; Blood Urea Nitrogen 17 mg/dL (7-17); C Reactive Protein 16.9 mg/L (<10.0); Calcium 9.8 mg/dL (8.4-10.2); Carbon Dioxide 24 mmol/L (22-30); Chloride 100 mmol/L (98-107); Glucose 84 mg/dL (74-99); Sodium 135 mmol/L (137-145); Total Bilirubin 1.1 mg/dL (0.2-1.3); Total Protein 7.9 g/dL (6.3-8.2)
[2018-05-21 15:12] LABS: Potassium 4.2 mmol/L (3.5-5.1)
[2018-05-21] MEDS ORDERED: KETOROLAC 30 MG/ML 1 ML VIAL IVP PRN (15:23)
[2018-05-21] MEDS ORDERED: NALOXONE 0.4 MG/ML 1 ML VIAL IV PRN (15:23)
[2018-05-21] MEDS ORDERED: LIDOCAINE 1% INJ 10MG/ML (20 ML MDV) SQ ONE (15:26)
[2018-05-21] MEDS ORDERED: SODIUM CHLORIDE 0.9% 1,000 ML IV SCH (15:30)
[2018-05-21] MEDS ORDERED: CLINDAMYCIN 600 MG in DEXTROSE 5% IN WATER 50 ML IVPB STA ×2 (16:15)
[2018-05-21 17:02] VITALS: BP 143/90; PULSE 92
[2018-05-21] MEDS ORDERED: ACETAMINOPHEN TAB 500 MG TAB PO PRN (17:34)
[2018-05-21] MEDS ORDERED: ceFAZolin IN SWFI 2 GM/20 ML SYRINGE IVP SCH (17:45)
[2018-05-21] MEDS ORDERED: NICOTINE 14MG/24HR PATCH TRANSDERM SCH (17:45)
--- NOTE | 2018-05-21 20:35 | HP ---
HISTORY AND PHYSICAL DATE OF SERVICE: 05/21/2018 CHIEF COMPLAINT: Skin abscess and cellulitis on both arms. HISTORY OF PRESENT ILLNESS: This 33-year-old woman with a past medical history of multiple medical problems including history of hepatitis, history of MRSA, history of anxiety and depression, being followed by Dr. Cole in the outpatient setting, apparently had been using heroin. The patient apparently relapsed after going to a stint at rehab in [place]. Currently the patient is complaining of pain and swelling of the left arm, especially near the antecubital fossa and also an area of induration on the left arm also. The admitted to the hospital for further evaluation and treatment. There is no history of fever, rigors. No history of headache, loss of consciousness, seizures. PAST MEDICAL HISTORY: Hepatitis C, MRSA, anxiety and depression. MEDICATIONS: Prior to admission include home medications are: 1. Bactrim DS 1 p.o. b.i.d. 2. Keflex 500 mg q.6h p.r.n. ALLERGIES: None. FAMILY HISTORY: History of hypertension in the family. SOCIAL HISTORY: History of IV drug abuse. History of nicotine dependence, THC. REVIEW OF SYMPTOMS: ENT: No diminished vision. No diminished hearing. CARDIOVASCULAR: No angina, palpitations. RESPIRATORY SYSTEM: No cough or hemoptysis. GI: No nausea or vomiting. : No dysuria. NERVOUS SYSTEM: No numbness, weakness. ALLERGY/IMMUNOLOGY: No asthma or hayfever. MUSCULOSKELETAL as mentioned earlier. HEMATOLOGY/ONCOLOGY: No history of anemia. ENDOCRINE: No history of diabetes or hypothyroidism. CONSTITUTIONAL: As mentioned earlier. Dermatology: Negative. Rheumatology: Negative. Psychiatry: As mentioned earlier. PHYSICAL EXAM: Patient is alert, oriented x3, pulse 92, blood pressure 140/90, respiration 18, temperature 97.9, pulse ox 100 percent on room air. HEENT: Conjunctivae normal. NECK: No jugular venous distention. No carotid bruit. Cardiovascular: S1, S2. RESPIRATORY: Breath sounds diminished in the bases. No rhonchi. No crackles. ABDOMEN: Soft, nontender. No mass palpable. LEGS: No edema. No swelling. Nervous system: Higher functions as mentioned earlier. Moves all 4 limbs. No focal motor or sensory deficits. Lymphatics: No lymph nodes palpable in the neck, axillae or groin. SKIN: Diffuse erythema tenderness in the right antecubital area present. Left forearm there was an area of induration preset. Mostly acute on the right. Otherwise, nervous system: No focal deficits. LAB STUDIES: WBC 11.7, hemoglobin 13.6. Sodium 135, AST and ALT noted. ASSESSMENT: 1. Acute thrombophlebitis and cellulitis of the right arm. 2. Subacute chronic subacute in-stent infection of the left forearm. 3. History of IV drug abuse. 4. History of MRSA. 5. Increased WBC. 6. Hyponatremia. 7. Increased AST, ALT, possibly mild hepatitis. 8. History of hepatitis C. 9. History of MRSA. 10.History of section. 11.History of anxiety, depression. 12.History of nicotine dependence. RECOMMENDATIONS AND DISCUSSION: In this 33-year-old woman who presented with multiple complex medical issues, we will monitor the patient closely. Continue the current medications, management and symptomatic treatment. We will initiate broad-spectrum IV antibiotics. We will initiate Kefzol and obtain the cultures and I would also recommend evaluation with Infectious Disease. DVT prophylaxis. Symptomatic treatment for anxiety and pain. Guarded prognosis because of multiple complex medical issues. Further recommendations to follow. A copy of dictation being forwarded to Dr. Cole who is the primary physician. MMLUPILLOL / MOHSEN: [id number] /
[2018-05-21] MEDS ORDERED: HEPARIN SODIUM,PORCINE 5,000 UNIT/ML 1 ML VIAL SQ SCH (21:00)
[2018-05-21] MEDS ORDERED: cloNIDine HCL 0.1 MG TAB PO SCH (21:00)
[2018-05-22] MEDS ORDERED: PANTOPRAZOLE 40 MG TABLET PO SCH (07:30)
[2018-05-22] MEDS ORDERED: MULTIVITAMINS, THERA 1 EACH TAB PO SCH (12:00)
== END 2018-05-21 17:10 | disposition left against medical advice (07) ==
LOC: EC 13:16 → UNDOADMOB 15:28 → 3NMEDONC 15:28 → EC 17:10
DX: L03.114 Cellulitis of left upper limb (principal); L03.113 Cellulitis of right upper limb; F17.200 Nicotine dependence, unspecified, uncomplicated; Z86.14 Personal history of Methicillin resistant Staphylococcus aureus infection; Z53.20 Procedure and treatment not carried out because of patient's decision for unspecified reasons; Z53.8 Procedure and treatment not carried out for other reasons
CPT/HCPCS: 99283; 96365; 96367; 96375; 36415; 80053; 85025; 86140; 81025; 87040; 73090; J0696; J1885

== ENCOUNTER 2018-05-22 20:44 | Emergency (ER) | payer OTHER ==
[2018-05-22] MEDS ORDERED: cloNIDine HCL 0.1 MG TAB PO STA (23:00)
[2018-05-22] MEDS ORDERED: KETOROLAC 30 MG/ML 1 ML VIAL IVP STA (23:00)
[2018-05-22] MEDS ORDERED: SODIUM CHLORIDE 0.9% 1,000 ML IV ONE (23:00)
[2018-05-22 23:18] LABS: Basophils # (A) 0.1 k/uL (0-0.2); Basophils % (A) 1 %; Eosinophils # (A) 0.1 k/uL (0-0.7); Eosinophils % (A) 1 %; HCT 38.7 % (34.0-46.0); Lymphocytes % (A) 20 %; MCH 27.9 pg (25.0-35.0); MCHC 33.5 g/dL (31.0-37.0); MCV 83.3 fL (80.0-100.0); Monocytes # (A) 0.8 k/uL (0-1.0); Monocytes % (A) 8 %; Neutrophils # (A) 6.8 k/uL (1.3-7.7); Neutrophils % (A) 68 %; Platelet Count 357 k/uL (150-450); RBC 4.64 m/uL (3.80-5.40); RDW 13.6 % (11.5-15.5)
[2018-05-22 23:29] LABS: ALT 46 U/L (9-52); AST 33 U/L (14-36); Albumin 4.2 g/dL (3.5-5.0); Alkaline Phosphatase 89 U/L (38-126); Anion Gap 10 mmol/L; Blood Urea Nitrogen 15 mg/dL (7-17); Calcium 9.9 mg/dL (8.4-10.2); Carbon Dioxide 24 mmol/L (22-30); Chloride 103 mmol/L (98-107); Glucose 87 mg/dL (74-99); Sodium 137 mmol/L (137-145); Total Bilirubin 0.9 mg/dL (0.2-1.3); Total Protein 7.6 g/dL (6.3-8.2)
--- NOTE | 2018-05-23 01:07 | ED ---
Skin/Abscess/FB HPI - General Chief complaint: Skin/Abscess/Foreign Body Stated complaint: abscess on arm Time Seen by Provider: 05/22/18 21:42 Source: patient Mode of arrival: ambulatory Limitations: no limitations - History of Present Illness Initial comments: 33-year-old female patient presents to the emergency department today for evaluation of abscess and swelling to the right forearm. Patient states that she did shoot up heroin a couple of days ago. Patient states she developed a hard painful, swollen bump to the left antecubital region. Patient states that she was seen and evaluated here for this yesterday, she was going to be admitted however left AGAINST MEDICAL ADVICE due to a family emergency. Patient states that the pain and swelling has increased to the area. States that she is now has redness extending down to her wrist and up to her shoulder. Patient states that she has been chilled but denies any fever. Patient states that she has been nauseated and did vomit. Patient denies any recent rash , shortness breath, chest pain, abdominal pain, diarrhea, constipation, back pain, numbness, tingling, dizziness, weakness, hematuria, dysuria, urinary urgency, urinary frequency, headache, visual changes, or any other complaints. - Related Data Previous Rx's Medication Instructions Recorded Cephalexin [Keflex] 500 mg PO Q6HR 7 Days #28 cap 05/21/18 Sulfamethox-Tmp 800-160Mg [Bactrim 1 tab PO Q12HR 7 Days #14 tab 05/21/18 DS 800-160 mg] Cephalexin [Keflex] 500 mg PO Q6HR #40 cap 05/23/18 Sulfamethoxazole/Trimethoprim 1 each PO BID #20 tablet 05/23/18 [Bactrim DS 800-160 mg] Allergies Allergy/AdvReac Type Severity Reaction Status Date / Time No Known Allergies Allergy Verified 05/22/18 21:57 Review of Systems ROS Statement: Those systems with pertinent positive or pertinent negative responses have been documented in the HPI. ROS Other: All systems not noted in ROS Statement are negative. Past Medical History Past Medical History: No Reported History Additional Past Medical History / Comment(s): Hep C History of Any Multi-Drug Resistant Organisms: MRSA Date of last positivie culture/infection: 2003 MDRO Source:: right arm Past Surgical History: Section Additional Past Surgical History / Comment(s): Oral surgery wisdom teeth, 1997 Past Anesthesia/Blood Transfusion Reactions: No Reported Reaction Past Psychological History: Anxiety, Depression Smoking Status: Current every day smoker Past Alcohol Use History: None Reported Past Drug Use History: IV Drug Use, Marijuana, Opiates - Past Family History Mother Family Medical History: Hypertension General Exam Limitations: no limitations General appearance: alert, in no apparent distress, other (This is a well- developed, well-nourished adult female patient in no acute distress. Vital signs upon presentation are temperature 97.4F, pulse 116, respirations 20, blood pressure 153/108, pulse ox 100% on room air.) Eye exam: Present: normal appearance, PERRL, EOMI. Absent: scleral icterus, conjunctival injection, periorbital swelling ENT exam: Present: normal exam, normal oropharynx, mucous membranes moist Respiratory exam: Present: normal lung sounds bilaterally. Absent: respiratory distress, wheezes, rales, rhonchi, stridor Cardiovascular Exam: Present: normal rhythm, tachycardia, normal heart sounds. Absent: systolic murmur, diastolic murmur, rubs, gallop, clicks GI/Abdominal exam: Present: soft, normal bowel sounds. Absent: distended, tenderness, guarding, rebound, rigid Extremities exam: Present: full ROM, tenderness (Patient has tenderness over the right antecubital region.), normal capillary refill, other (There is evidence of abscess to the left antecubital region, this is indurated. She has surrounding cellulitis extending down to her wrist and up to her mid upper arm. Radial pulses 2+ and equal bilaterally. Cap refills less than 3 seconds.). Absent: normal inspection, pedal edema, joint swelling, calf tenderness Neurological exam: Present: alert, oriented X3, CN II-XII intact Psychiatric exam: Present: normal affect, normal mood Skin exam: Present: warm, dry, intact, normal color. Absent: rash Course Vital Signs 05/22/18 05/23/18 05/23/18 21:34 02:05 02:49 Temperature 97.4 F L 97.5 F L Pulse Rate 116 H 96 78 Respiratory 20 16 18 Rate Blood Pressure 153/108 130/73 129/69 O2 Sat by Pulse 100 97 97 Oximetry Procedures - Incision & Drainage Consent Obtained: verbal consent Indication: Abscess Site: upper extremity (Right antecubital region) Size (cm): 3 Anesthetic Used: lidocaine 1% Amount (mLs): 10 I&D Cleaning Method: Betadine Sterile Field Used?: Yes Scalpel Used: #11 Irrigation Performed?: No I&D Drainage Obtained: Blood Packing: Iodoform (05/05") Culture Obtained?: No Patient Tolerated Procedure: well, no complications Medical Decision Making - Medical Decision Making 33-year-old female patient presents the emergency department today for evaluation of abscess to the right antecubital region. Physical examination did reveal a 3 cm x 3 cm abscess that did appear to be indurated with no fluctuance. Patient did have surrounding cellulitis extending down her forearm and upper upper arm. Patient had good neurovascular status. My attending Dr. Joseph was in to see the patient, he did perform ultrasound. He recommended incision and drainage. I did perform incision and drainage was unable to express any purulent fluid. Patient was started on Keflex and Bactrim. Given a white blood cell count, stable vital signs at discharge at this time to follow -up with her primary care physician outpatient. Return parameters were discussed in detail. She verbalizes understanding and agrees with this plan. - Lab Data Result diagrams: 05/22/18 22:34 05/22/18 22:34 Lab Results 05/22/18 05/22/18 05/22/18 Range/Units 22:34 22:34 22:34 WBC 10.0 (3.8-10.6) k/uL RBC 4.64 (3.80-5.40) m/uL Hgb 13.0 (11.4-16.0) gm/dL Hct 38.7 (34.0-46.0) % MCV 83.3 (80.0-100.0) fL MCH 27.9 (25.0-35.0) pg MCHC 33.5 (31.0-37.0) g/dL RDW 13.6 (11.5-15.5) % Plt Count 357 (150-450) k/uL Neutrophils % 68 % Lymphocytes % 20 % Monocytes % 8 % Eosinophils % 1 % Basophils % 1 % Neutrophils # 6.8 (1.3-7.7) k/uL Lymphocytes # 2.0 (1.0-4.8) k/uL Monocytes # 0.8 (0-1.0) k/uL Eosinophils # 0.1 (0-0.7) k/uL Basophils # 0.1 (0-0.2) k/uL Sodium 137 (137-145) mmol/L Potassium 4.0 (3.5-5.1) mmol/L Chloride 103 (98-107) mmol/L Carbon Dioxide 24 (22-30) mmol/L Anion Gap 10 mmol/L BUN 15 (7-17) mg/dL Creatinine 0.62 (0.52-1.04) mg/dL Est GFR (CKD-EPI)AfAm >90 (>60 ml/min/1.73 sqM) Est GFR (CKD-EPI)NonAf >90 (>60 ml/min/1.73 sqM) Glucose 87 (74-99) mg/dL Plasma Lactic Acid Pawel 0.8 (0.7-2.0) mmol/L Calcium 9.9 (8.4-10.2) mg/dL Total Bilirubin 0.9 (0.2-1.3) mg/dL AST 33 (14-36) U/L ALT 46 (9-52) U/L Alkaline Phosphatase 89 (38-126) U/L Total Protein 7.6 (6.3-8.2) g/dL Albumin 4.2 (3.5-5.0) g/dL Disposition Clinical Impression: Abscess of right forearm, Cellulitis Disposition: HOME SELF-CARE Condition: Good Instructions (If sedation given, give patient instructions): Cellulitis (ED), Abscess Incision and Drainage (ED), Abscess (ED) Additional Instructions: Take and complete antibiotic prescriptions and full. Follow-up with your primary care physician for recheck in 1-2 days. Apply warm compresses to the area 20 minutes at a time at least 4 times daily. Return to the emergency department immediately if he develop any fever, vomiting, or unable to keep down your medications. Return for any other new, worsening, or concerning symptoms Prescriptions: Cephalexin [Keflex] 500 mg PO Q6HR #40 cap Sulfamethoxazole/Trimethoprim [Bactrim DS 800-160 mg] 1 each PO BID #20 tablet Is patient prescribed a controlled substance at d/c from ED?: No Referrals: José Cole MD [Primary Care Provider] - 1-2 days Time of Disposition: 02:37
[2018-05-23] MEDS ORDERED: LIDOCAINE 1% INJ 10MG/ML (20 ML MDV) SQ ONE (01:50)
[2018-05-23 02:06] VITALS: TEMP 97.5
[2018-05-23] MEDS ORDERED: SULFAMETH-TMP DS STARTER PACK 2 TAB BTL PO STA (02:06)
[2018-05-23] MEDS ORDERED: CEPHALEXIN 500MG STARTER PACK 4 CAP BTL PO STA (02:06)
[2018-05-23 02:50] VITALS: BP 129/69; PULSE 78; RESP 18
== END 2018-05-23 02:51 | disposition home or self-care (01) ==
LOC: EC 20:44
DX: L03.113 Cellulitis of right upper limb (principal); L02.413 Cutaneous abscess of right upper limb; R11.2 Nausea with vomiting, unspecified; F17.200 Nicotine dependence, unspecified, uncomplicated; Z86.19 Personal history of other infectious and parasitic diseases; Z86.14 Personal history of Methicillin resistant Staphylococcus aureus infection
CPT/HCPCS: 36415; 80053; 83605; 85025; 87040; 99283; 10060; 96374; 96361 ×3; J1885

== ENCOUNTER 2018-06-21 01:06 | Emergency (ER) | payer OTHER ==
[2018-06-21 01:14] VITALS: BP 111/57; PULSE 88; RESP 20; TEMP 98.2
[2018-06-21] MEDS ORDERED: SULFAMETH-TMP DS STARTER PACK 2 TAB BTL PO STA (01:35)
--- NOTE | 2018-06-21 01:36 | ED ---
Skin/Abscess/FB HPI - General Chief complaint: Skin/Abscess/Foreign Body Stated complaint: Abcess R Wrist Time Seen by Provider: 06/21/18 01:16 Source: patient Mode of arrival: ambulatory Limitations: no limitations - History of Present Illness Initial comments: 33-year-old female patient presents to the emergency department today for evaluation of abscess to the right wrist. Patient states that the abscess developed a little over a week ago. States that she did inject heroin into the area prior to abscess formation. Patient states that she did open the abscess with a razor blade and did have a lot of purulent drainage. States the area is healing. States that she has been clean for 2 weeks. She denies any fevers or chills with this. Denies any nausea or vomiting. States that the area has stopped draining. She presents to the emergency department tonight because she needs a note for clearance to see her children had visitation tomorrow. Patient denies any recent rash, shortness breath, chest pain, abdominal pain, diarrhea, constipation, back pain, numbness, tingling, dizziness, weakness, hematuria, dysuria, urinary urgency, urinary frequency, headache, visual changes, or any other complaints. She denies any chance of . - Related Data Previous Rx's Medication Instructions Recorded Sulfamethoxazole/Trimethoprim 1 each PO BID #20 tablet 06/21/18 [Bactrim DS 800-160 mg] Allergies Allergy/AdvReac Type Severity Reaction Status Date / Time No Known Allergies Allergy Verified 05/22/18 21:57 Review of Systems ROS Statement: Those systems with pertinent positive or pertinent negative responses have been documented in the HPI. ROS Other: All systems not noted in ROS Statement are negative. Past Medical History Past Medical History: No Reported History Additional Past Medical History / Comment(s): Hep C History of Any Multi-Drug Resistant Organisms: MRSA Date of last positivie culture/infection: 2003 MDRO Source:: right arm Past Surgical History: Section Additional Past Surgical History / Comment(s): Oral surgery wisdom teeth, 1996 Past Anesthesia/Blood Transfusion Reactions: No Reported Reaction Past Psychological History: Anxiety, Depression Smoking Status: Current every day smoker Past Alcohol Use History: None Reported Past Drug Use History: IV Drug Use, Marijuana, Opiates - Past Family History Mother Family Medical History: Hypertension General Exam Limitations: no limitations General appearance: alert, in no apparent distress, other (Physical well- developed, well-nourished adult female patient in no acute distress. Vital signs upon presentation are temperature 98.2F, pulse 88, respirations 20, blood pressure 111/57, pulse ox 95% on room air.) Eye exam: Present: normal appearance, PERRL, EOMI. Absent: scleral icterus, conjunctival injection, periorbital swelling Respiratory exam: Present: normal lung sounds bilaterally. Absent: respiratory distress, wheezes, rales, rhonchi, stridor Cardiovascular Exam: Present: regular rate, normal rhythm, normal heart sounds. Absent: systolic murmur, diastolic murmur, rubs, gallop, clicks GI/Abdominal exam: Present: soft, normal bowel sounds. Absent: distended, tenderness, guarding, rebound, rigid Extremities exam: Present: full ROM, normal capillary refill, other (Patient has 2 cm x 2 cm area of abscess to the right wrist, no surrounding cellulitis or erythema. Area is indurated with no fluctuance. No evidence of drainable abscess at this time.). Absent: normal inspection, tenderness, pedal edema, joint swelling, calf tenderness Neurological exam: Present: alert, oriented X3, CN II-XII intact Psychiatric exam: Present: normal affect, normal mood Skin exam: Present: warm, dry, intact, normal color. Absent: rash Course Vital Signs 06/21/18 01:10 Temperature 98.2 F Pulse Rate 88 Respiratory 20 Rate Blood Pressure 111/57 O2 Sat by Pulse 95 Oximetry Medical Decision Making - Medical Decision Making 33-year-old female patient presents to the emergency department today for evaluation of abscess to the right wrist. She is requesting a clearance no to have visitation with her children tomorrow stating that she is not contagious. Physical examination did reveal a healing abscess to the right wrist, no current fluctuance. No surrounding cellulitis. Patient is afebrile, vital signs stable. She'll be started on Bactrim. She is instructed to follow-up with her primary care physician for recheck in 1-2 days. She is instructed to cover the area during the visitation. Return parameters discussed in detail. She verbalizes understanding and agrees with this plan. Disposition Clinical Impression: Abscess of right arm Disposition: HOME SELF-CARE Condition: Good Instructions (If sedation given, give patient instructions): Abscess (ED) Additional Instructions: Apply warm compresses to area. Complete antibiotics in full. Follow up with primary care physician for recheck in 1-2 days. Return immediately for any new, worsening, or concerning symptoms. Prescriptions: Sulfamethoxazole/Trimethoprim [Bactrim DS 800-160 mg] 1 each PO BID #20 tablet Is patient prescribed a controlled substance at d/c from ED?: No Referrals: José Cole MD [Primary Care Provider] - 1-2 days Time of Disposition: 01:36
== END 2018-06-21 01:44 | disposition home or self-care (01) ==
LOC: EC 01:06
DX: L02.413 Cutaneous abscess of right upper limb (principal); F17.200 Nicotine dependence, unspecified, uncomplicated; Z86.14 Personal history of Methicillin resistant Staphylococcus aureus infection; Z86.19 Personal history of other infectious and parasitic diseases
CPT/HCPCS: 99282

== ENCOUNTER 2019-08-06 19:41 | Emergency (ER) | payer OTHER ==
[2019-08-06 20:07] VITALS: BP 154/91; PULSE 97; RESP 20; TEMP 97.9
[2019-08-06] MEDS ORDERED: SULFAMETH-TMP DS STARTER PACK 2 TAB BTL PO STA (20:26)
--- NOTE | 2019-08-06 20:26 | ED ---
Skin/Abscess/FB HPI - General Chief complaint: Skin/Abscess/Foreign Body Stated complaint: Rash Time Seen by Provider: 08/06/19 20:08 Source: patient Mode of arrival: ambulatory Limitations: no limitations - History of Present Illness Initial comments: Patient is a 34-year-old female presenting to the emergency Department with a chief complaint of rash. Patient states that she was shaving near the general region, groin and buttock she developed a rash. Patient reports this occurred several days ago. States her boyfriend also used the same razor and he has developed similar lesions throughout the areas of contact. Does report occasional drainage but nothing currently. Denies any night sweats fevers or chills. Does report itching and surrounding erythema. States they're somewhat painful when palpated. Denies taking any medication to alleviate the symptoms. - Related Data Previous Rx's Medication Instructions Recorded Sulfamethoxazole/Trimethoprim 1 each PO BID #20 tablet 06/21/18 [Bactrim DS 800-160 mg] Sulfamethox-Tmp 800-160Mg [Bactrim 1 each PO Q12HR #20 tab 08/06/19 Ds] Allergies Allergy/AdvReac Type Severity Reaction Status Date / Time No Known Allergies Allergy Verified 08/06/19 20:07 Review of Systems ROS Statement: Those systems with pertinent positive or pertinent negative responses have been documented in the HPI. ROS Other: All systems not noted in ROS Statement are negative. Past Medical History Past Medical History: No Reported History Additional Past Medical History / Comment(s): Hep C History of Any Multi-Drug Resistant Organisms: MRSA Date of last positivie culture/infection: 2003 MDRO Source:: right arm Past Surgical History: Section Additional Past Surgical History / Comment(s): Oral surgery wisdom teeth, 1996 Past Anesthesia/Blood Transfusion Reactions: No Reported Reaction Past Psychological History: Anxiety, Depression Smoking Status: Current every day smoker Past Alcohol Use History: None Reported Past Drug Use History: IV Drug Use, Marijuana, Opiates - Past Family History Mother Family Medical History: Hypertension General Exam Limitations: no limitations General appearance: alert, in no apparent distress Head exam: Present: atraumatic, normocephalic, normal inspection Eye exam: Present: normal appearance, PERRL, EOMI Pupils: Present: normal accommodation ENT exam: Present: normal exam Neck exam: Present: normal inspection Respiratory exam: Present: normal lung sounds bilaterally Cardiovascular Exam: Present: regular rate, normal rhythm Rectal exam: Present: other (Rash near the groin, buttocks and surrounding the vagina but nothing on the inside of the vagina.) Extremities exam: Present: normal inspection, full ROM Back exam: Present: normal inspection, full ROM Neurological exam: Present: alert, oriented X3 Psychiatric exam: Present: normal affect, normal mood Skin exam: Present: warm, dry, intact, normal color, rash (Folliculitis- appearing lesions throughout the area patient uses a razor to shave.) Course Vital Signs 08/06/19 20:05 Temperature 97.9 F Pulse Rate 97 Respiratory 20 Rate Blood Pressure 154/91 O2 Sat by Pulse 100 Oximetry Medical Decision Making - Medical Decision Making Patient is a 34-year-old male presenting to the emergency department with a chief complaint of a rash. Physical examination patient does appear to have folliculitis in the areas where she used a razor to shave. Her boyfriend also uses same reason he has developed similar lesions in the areas he shaved. No active discharge at this time. No abscess-like formation. Patient was started on Bactrim. Discharged with a 10 day course of Bactrim. Return parameters thoroughly discussed with patient was understanding and agreeable. Advised to use [id number] Benadryl for the itching. Case discussed with physician. Disposition Clinical Impression: Staphylococcal infection of skin, Acute folliculitis Disposition: HOME SELF-CARE Condition: Stable Instructions (If sedation given, give patient instructions): Folliculitis (ED) Additional Instructions: Take prescribed medication as directed. Take [id number] Benadryl for itching. Avoid using a razor until rash resolves. Do not share razors. Return to emergency department if symptoms worsen. Prescriptions: Sulfamethox-Tmp 800-160Mg [Bactrim Ds] 1 each PO Q12HR #20 tab Is patient prescribed a controlled substance at d/c from ED?: No Referrals: José Cole MD [Primary Care Provider] - 1-2 days Time of Disposition: 20:26
== END 2019-08-06 20:37 | disposition home or self-care (01) ==
LOC: EC 19:41
DX: L73.9 Follicular disorder, unspecified (principal); B95.8 Unspecified staphylococcus as the cause of diseases classified elsewhere; F17.200 Nicotine dependence, unspecified, uncomplicated; Z86.14 Personal history of Methicillin resistant Staphylococcus aureus infection
CPT/HCPCS: 99282

== ENCOUNTER → 2021-10-01 | Outpatient (CLI) | payer OTHER ==
[2021-10-01 10:45] LABS: Basophils # (A) 0.05 X 10*3/uL (0.00-0.10); Basophils % (A) 0.5 %; Eosinophils # (A) 0.17 X 10*3/uL (0.04-0.35); Eosinophils % (A) 1.8 %; HCT 45.8 % (37.2-46.3); HGB 14.4 g/dL (12.0-15.0); Immature Grans, Automated 0.4 %; Lymphocytes # (A) 2.01 X 10*3/uL (0.90-5.00); Lymphocytes % (A) 21.3 %; MCH 27.7 pg (27.0-32.0); MCHC 31.4 g/dL (32.0-37.0); MCV 88.1 fL (80.0-97.0); Mean Platelet Volume 10.2 fL (9.5-12.2); Monocytes # (A) 0.58 X 10*3/uL (0.20-1.00); Monocytes % (A) 6.1 %; NRBC Per 100 WBC 0 /100 WBCS (0.0-0.0); Neutrophils # (A) 6.59 X 10*3/uL (1.80-7.70); Neutrophils % (A) 69.9 %; Platelet Count 320 X 10*3/uL (140-440); RDW 13.5 % (11.5-14.5); WBC 9.44 X 10*3/uL (4.50-10.00)
== END | disposition home or self-care (01) ==
LOC: LABPAT 07:39
PROVIDERS: ATTEND Surgery
DX: Z01.812 Encounter for preprocedural laboratory examination (principal); K42.9 Umbilical hernia without obstruction or gangrene
CPT/HCPCS: 85025

== ENCOUNTER 2021-10-06 07:43 | Day surgery (SDC) | payer OTHER ==
[2021-10-01 15:43] VITALS: BMI 36.8
[~2021-10-06 07:43] MED LIST: ACETAMINOPHEN TAB 500 MG TAB PO PRN; DEXAMETHASONE SOD PHOSPHATE 4 MG/ML 1 ML VIAL IV ONE; HEPARIN SODIUM,PORCINE/PF 5,000 UNIT/0.5 ML SYRINGE SQ PRN; LACTATED RINGERS 1,000 ML IV SCH; LIDOCAINE 1% (10MG/ML) FOR IV START INTRADERMA PRN; ONDANSETRON 4 MG/2 ML VIAL IVP ONE; SCOPOLAMINE 1 MG/72 HR PATCH TRANSDERM ONE
[2021-10-06 08:45] LABS: Glucose,Whole Blood 96 mg/dL (75-99)
[2021-10-06] MEDS ORDERED: MIDAZOLAM 2 MG/2 ML VIAL IVP ONE (09:03)
[2021-10-06] MEDS ORDERED: fentaNYL (PF) 50 MCG/ML 2 ML AMP IVP ONE (09:03)
--- NOTE | 2021-10-06 09:11 | P.GSHP ---
History of Present Illness H&P Date: 10/06/21 Chief Complaint: Incarcerated umbilical hernia Is a 28-year-old female developed an incarcerated umbilical hernia. Patient presents today for laparoscopic robotic this repair. Past Medical History Past Medical History: Liver Disease Additional Past Medical History / Comment(s): HX Hep C. GALLBLADDER DISORDER History of Any Multi-Drug Resistant Organisms: MRSA Date of last positivie culture/infection: 2003 MDRO Source:: right arm Past Surgical History: Section Additional Past Surgical History / Comment(s): Oral surgery wisdom teeth, 1996. COLONOSCOPY Past Anesthesia/Blood Transfusion Reactions: No Reported Reaction Smoking Status: Current every day smoker - Past Family History Mother Family Medical History: Hypertension Medications and Allergies Home Medications Medication Instructions Recorded Confirmed Type No Known Home Medications 10/01/21 10/06/21 History Allergies Allergy/AdvReac Type Severity Reaction Status Date / Time No Known Allergies Allergy Verified 10/06/21 08:16 Surgical - Exam Vital Signs Temp Pulse Resp BP Pulse Ox 97.5 F L 85 20 137/81 98 10/06/21 08:28 10/06/21 08:28 10/06/21 08:28 10/06/21 08:28 10/06/21 08:28 - General well developed, well nourished, no distress - Eyes PERRL - ENT normal pinna - Neck no masses - Respiratory normal expansion - Cardiovascular Rhythm: regular - Abdomen Abdomen: soft, non tender Hernia: umbilical Assessment and Plan Assessment: Incarcerated umbilical hernia. We'll perform laparoscopic robotic-assisted repair.
[2021-10-06] MEDS ORDERED: PROPOFOL 10 MG/ML 20 ML VIAL IV ONE (09:30)
[2021-10-06] MEDS ORDERED: KETAMINE 10 MG/ML 20 ML VIAL ONE (09:30)
[2021-10-06] MEDS ORDERED: SUCCINYLCHOLINE CHLORIDE 100 MG/5 ML SYR IV ONE (09:30)
[2021-10-06] MEDS ORDERED: MIDAZOLAM 2 MG/2 ML VIAL ONE (09:30)
[2021-10-06] MEDS ORDERED: ROPIVACAINE 5 MG/ML 30 ML VIAL ONE (09:30)
[2021-10-06] MEDS ORDERED: SODIUM CHLORIDE 0.9% (PF) 10 ML VIAL ONE (09:30)
[2021-10-06] MEDS ORDERED: NEOSTIGMINE 1 MG/ML 10 ML VIAL ONE (09:30)
[2021-10-06] MEDS ORDERED: GLYCOPYRROLATE 0.2 MG/ML 2 ML VIAL ONE (09:30)
[2021-10-06] MEDS ORDERED: ROCURONIUM 10 MG/ML (5 ML VIAL) IV ONE (09:30)
[2021-10-06] MEDS ORDERED: fentaNYL (PF) 50 MCG/ML 2 ML AMP ONE (09:30)
[2021-10-06] MEDS ORDERED: HYDROmorphone (PF) 1 MG/ML ONE (09:30)
[2021-10-06] MEDS ORDERED: LIDOCAINE 2% INJ 20 MG/ML (2 ML VIAL) ONE (09:30)
[2021-10-06] MEDS ORDERED: KETOROLAC 15 MG/ML 1 ML VIAL ONE (09:30)
[2021-10-06] MEDS ORDERED: BUPIVACAIN-EPI 0.25%-1:200,000 30 ML VIAL SQ ONE (09:54)
--- NOTE | 2021-10-06 10:04 | P.ANPRN ---
Procedure Note - Anesthesia - Nerve Block Performed Bilateral Rectus Abdominis Time Out Performed: Yes (:) Date of Procedure: 10/06/21 Procedure Start Time: Procedure Stop Time: : Location of Patient: PreOp Indication: Acute Post-Operative Pain, Requested by Surgeon (Dr Candelaria) Sedation Type: Sedate with meaningful contact maintained Preparation: Sterile Prep Position: Supine Catheter: None Needle Types: Pajunk Needle Gauge: 21 Ultrasound used to visualize needle placement: Yes Ultrasound used to observe medication spread: Yes Injectate: 0.5% Ropivacaine (see comment for volume) (15cc + 10cc PF Normal saline each side) Blood Aspirated: No Pain Paresthesia on Injection Noted: No Resistance on Injection: Normal Image Stored and Saved: Yes Events: Uneventful and Well Tolerated
[2021-10-06] MEDS ORDERED: LACTATED RINGERS 1,000 ML IV ONE (10:25)
--- NOTE | 2021-10-06 10:35 | P.OP ---
Date of Procedure: 10/06/21 Preoperative Diagnosis: Incarcerated umbilical hernia Postoperative Diagnosis: Incarcerated umbilical hernia Procedure(s) Performed: Laparoscopic robotic-assisted repair of incarcerated umbilical hernia Partial omentectomy Transversus abdominis plane block Anesthesia: BECKIE Surgeon: Bryan Candelaria Estimated Blood Loss (ml): 5 Pathology: other (Hernia sac/omentum) Condition: stable Disposition: PACU Description of Procedure: TThe patient was placed on the operating table in the supine position. He received general anesthesia. His abdomen was prepped and draped usual fashion. Using a 5 mm optical trocar under direct visualization the peritoneal cavity was entered in the left upper quadrant. The abdomen was then insufflated. The laparoscope was placed back into the perineal cavity. Next a 8 mm robotic trocar was placed in the left lower quadrant and a 12 mm robotic trocar was placed in the left lateral position. The original 5 mm trocar was exchanged for a 8 mm robotic trocar. The patient's placed in the left side up position. And the patient was docked the robot. A four-quadrant transversus abdominis plane block was performed with 1% local Xylocaine. The umbilical hernia was visualized. Using hook cautery the peritoneum over the umbilical hernia was excised. Incarcerated omentum and hernia sac were sent to pathology after dissection. The fascial opening was repaired using 0V LOC suture. Next a piece of 11 cm round ventral light ST mesh was placed into the. Cavity and secured with 2 OV lock suture. The patient was undocked the robot. The needles were retrieved. The fascia of the 12 mm trocar site was closed with 0 Ethibond suture. Skin was closed interrupted 3-0 Monocryl suture. Dermabond dressings was applied. Patient top procedure well and was sent to recovery room stable condition.
[2021-10-06 10:40] VITALS: TEMP 98.5
[2021-10-06] MEDS: HYDROmorphone 0.5 MG/0.5 ML SYRINGE IVP PRN ×4 (10:44→11:08)
[2021-10-06 10:49] VITALS: RESP 16
[2021-10-06 13:24] VITALS: BP 128/67; PULSE 80
== END 2021-10-06 13:20 | disposition home or self-care (01) ==
LOC: OR 07:43
PROVIDERS: ATTEND Surgery
DX: K42.0 Umbilical hernia with obstruction, without gangrene (principal); K76.9 Liver disease, unspecified; Z86.19 Personal history of other infectious and parasitic diseases; Z98.891 History of uterine scar from previous surgery; Z98.890 Other specified postprocedural states; F17.200 Nicotine dependence, unspecified, uncomplicated; Z82.49 Family history of ischemic heart disease and other diseases of the circulatory system
CPT/HCPCS: 49653; 81025; 64488; 86900; 86901; 86850; 88302; J2250; J1100; J2710; J0690; J2405; J3010; J1170 ×2; J2795; J1885; J0330; J2704; J2001; 64999